=== PATIENT | female | born 1970 | race Caucasian/White ===

== ENCOUNTER 2017-10-15 20:05 | Outpatient (CLI) | payer MEDICAID, OTHER ==
[~2017-10-15 20:05] MED LIST: CELE50CA PO; DESV100T PO; LAMO100T69 PO; LEVO112T2 PO; OXYC-202 PO
== END 2017-10-16 06:35 | disposition home or self-care (01) ==
LOC: SLEEP 20:05
PROVIDERS: ATTEND Otolaryngology Otolaryngology/Facial Plastic Surgery
DX: G47.33 Obstructive sleep apnea (adult) (pediatric) (principal)
CPT/HCPCS: 95810

== ENCOUNTER → 2018-07-23 | Outpatient (CLI) | payer OTHER ==
[~2018-07-23] MED LIST changes: -OXYC-202 PO; +OXYC1TAB12 PO
--- NOTE | 2018-07-24 19:50 | Diagnostic Imaging Report ---
INDICATION: Routine screening. Comparison is made with prior mammogram from 07/10/2017 and 04/24/2016. 2-D and 3-D bilateral screening mammography was performed with Computer Aided Detection (CAD) system. FINDINGS: Both breasts remain heterogeneously dense, limiting the sensitivity of mammography. The parenchymal pattern is stable. No mass or malignant-appearing microcalcifications are seen. There are benign calcifications present. The axillae are unremarkable. IMPRESSION: No mammographic features suspicious for malignancy are identified. ACR BI-RADS Category 2: Benign findings. Result letter will be mailed to the patient. Note: At least 10% of breast cancer is not imaged by mammography. Dictated on workstation # [id number]
== END ==
LOC: RAD 13:22
PROVIDERS: ATTEND Obstetrics & Gynecology
DX: Z12.31 Encounter for screening mammogram for malignant neoplasm of breast (principal)
CPT/HCPCS: 77067

== ENCOUNTER 2018-09-09 10:58 | Outpatient (CLI) | payer OTHER ==
[~2018-09-09] VITALS: Ht 162.6 cm; Wt 65.3 kg
[2018-09-09] MEDS ORDERED: LEVO137T2 PO (11:15)
[2018-09-09] MEDS ORDERED: LAMO150T2 PO (11:15)
[2018-09-09] MEDS ORDERED: DESV50TA PO (11:15)
[2018-09-09] MEDS ORDERED: ARMO150T2 PO (13:07)
== END 2018-09-09 13:08 | disposition home or self-care (01) ==
LOC: PREOP 10:58
PROVIDERS: ATTEND Obstetrics & Gynecology
DX: Z01.818 Encounter for other preprocedural examination (principal)

== ENCOUNTER 2018-09-15 11:26 | Day surgery (SDC) | payer OTHER ==
[2018-09-15] VITALS (11 sets, daily range): BP systolic 93–125; BP diastolic 50–75
[~2018-09-15] VITALS: Ht 162.6 cm; Wt 63.5 kg
--- NOTE | 2018-09-15 09:42 | Progress Note-Pre Operative ---
Pre-Operative Progress Note H&P Reviewed The H&P was reviewed, patient examined and no changes noted. Date Seen by Provider: Sep 15, 2018 Time Seen by Provider: 12:30 Date H&P Reviewed: Sep 15, 2018 Time H&P Reviewed: 12:30 Pre-Operative Diagnosis: DUB/CPP/Endometriosis GLENROY HARRISON MD Sep 15, 2018 09:42
--- NOTE | 2018-09-15 09:43 | Progress Note-Post Operative ---
Post-Operative Progess Note Surgeon (s)/Clinical Services Consultant (s) Surgeon GLENROY HARRISON MD Clinical Services Consultant: Candida Lawrence Pre-Operative Diagnosis DUB/CPP/Endometriosis Post-Operative Diagnosis same with extensive pelvic adhesions and with extensive recurrent endometriosis and with path pending Procedure & Operative Findings Date of Procedure 09/15/18 Procedure Performed/Findings TLH/BSO Anesthesia Type GETA Estimated Blood Loss Estimated blood loss (mL): 50CC Specimens/Packing Specimens Removed Uterus/Tubes/Ovaries Packing: none GLENROY HARRISON MD Sep 15, 2018 09:43
--- NOTE | 2018-09-15 09:45 | Discharge Instructions ---
Discharge Instructions Discharge Medications New, Converted or Re-Newed RX: RX on Chart Patient Instructions Patient Instructions: as directed Return to The Hospital For: as directed Activity & Diet Discharge Diet: No Restrictions Activity as Tolerated: No Orders-Post D/C & Referrals Follow Up Appt: RTC on Monday September 17, 2018 at 9:30 AM for staple removal Call to make follow up appt. for patient in 4 weeks. Activity: Rest for 24 hours, than as tolerated. Wound Care: May remove Band-Aid tomorrow. Replace as desired. Keep incisions clean and dry. Wash daily with soap and water. Please call in RX to patient pharmacy. Diet: As tolerated-Clear Liquids only if nauseated. may shower or tub bathe as desired. No driving for 24 hours, no alcoholic beverages for 24 hours, and nothing per vagina (no tampons, douching, or intercourse) for 8 weeks. Patient to return to the clinic as soon as possible for: Temperature greater than 101F, Severe Pain, Foul discharge from incision or vagina, Excessive Bleeding (more than a period). GLENROY HARRISON MD Sep 15, 2018 09:45
[~2018-09-15 11:26] MED LIST changes: +ARMO150T2 PO; +DESV50TA PO; +DOCU-143 PO; +ESTR2TAB PO; +IBUP-1780 PO; +LAMO150T2 PO; +LEVO137T2 PO; +OXYC1TAB87 PO
[2018-09-15] MEDS ORDERED: ONDANSETRON 4 MG/2 ML (SDV) Z0FRAN ONE ×4 (11:35→14:19)
[2018-09-15] MEDS ORDERED: SCOPOLAMINE 1.5 MG (TRANSDERM-SCOP) PATCH ONE (11:35)
[2018-09-15] MEDS ORDERED: D5 LR IV SOLUTION 1,000 ML IV SCH (11:36)
[2018-09-15] MEDS ORDERED: FAMOTIDINE 20MG/2ML IV (PEPCID) ONE (11:36)
[2018-09-15] MEDS ORDERED: ceFAZolin INJECTION 1,000 MG ONE (11:36)
[2018-09-15] MEDS ORDERED: WATER (STERILE) FOR INJECTION 10 ML ONE ×2 (11:36→14:20)
[2018-09-15] MEDS ORDERED: ROCURONIUM 10 MG/ML 5 ML SYRINGE IV ONE (11:40)
[2018-09-15] MEDS ORDERED: proPOfol 200 MG/20 ML (DIPRIVAN) VIAL IV ONE (11:40)
[2018-09-15] MEDS ORDERED: LIDOCAINE PF 2% 5 ML (XYLOCAINE) VIAL ONE (11:40)
[2018-09-15] MEDS ORDERED: fentaNYL INJECTION 100 MCG/2 ML AMP ONE ×2 (11:40→13:04)
[2018-09-15] MEDS ORDERED: MIDAZOLAM 2 MG/2 ML (VERSED) VIAL ONE (11:41)
[2018-09-15] MEDS ORDERED: DEXAMETHASONE 10 MG/ML (DECADRON) 1 ML VIAL ONE (11:41)
[2018-09-15] MEDS ORDERED: WATER (STERILE) FOR INJ 10 ML BTL INJ ONE (11:45)
[2018-09-15] MEDS ORDERED: MEPERIDINE (DEMEROL) INJ 100 MG/ML IM PRN (11:45)
[2018-09-15] MEDS ORDERED: ceFAZolin INJECTION 1,000 MG in WATER (STERILE) FOR INJECTION 10 ML IV ONE (11:45)
[2018-09-15] MEDS ORDERED: ESTROGENS CONJ IV 25 MG/5 ML (PREMARIN) VIAL IVP ONE (11:45)
[2018-09-15] MEDS ORDERED: oxyCODONE/APAP 5/325MG (PERCOCET 5) TABLET PO PRN (11:45)
[2018-09-15] MEDS ORDERED: BUP/EPI 0.5% 1:200,000 (SENSORCAINE) 30 ML VIAL ONE (11:45)
[2018-09-15] MEDS ORDERED: PROMETHAZINE INJ 25 MG/ML (PHENERGAN) AMP IM PRN (11:45)
[2018-09-15] MEDS ORDERED: SEVOFLURANE (ULTANE) 15 ML INHAL SOLN ONE ×7 (11:48→13:52)
[2018-09-15] MEDS: LACTATED RINGERS 1,000 ML IV PRN ×3 (11:56→14:11)
[2018-09-15] MEDS: ONDANSETRON 4 MG/2 ML (SDV) Z0FRAN IVP PRN ×2 (12:03→14:24)
[2018-09-15 12:12] LABS: BASOPHILS % (AUTO) 1 % (0-10); EOSINOPHILS # (AUTO) 0.3 10^3/uL (0.0-0.3); EOSINOPHILS % (AUTO) 5 % (0-10); HEMATOCRIT 40 % (35-52); HEMOGLOBIN 13.4 G/DL (11.5-16.0); LYMPHOCYTES # (AUTO) 1.4 X 10^3 (1.0-4.0); LYMPHOCYTES % (AUTO) 21 % (12-44); MEAN CORPUSCULAR HEMOGLOBIN 30 PG (25-34); MEAN CORPUSCULAR HGB CONC 34 G/DL (32-36); MEAN CORPUSCULAR VOLUME 90 FL (80-99); MEAN PLATELET VOLUME 10.1 FL (7.4-10.4); MONOCYTES # (AUTO) 0.4 X 10^3 (0.0-1.0); MONOCYTES % (AUTO) 7 % (0-12); NEUTROPHILS # (AUTO) 4.3 X 10^3 (1.8-7.8); NEUTROPHILS % (AUTO) 66 % (42-75); PLATELET COUNT 274 10^3/uL (130-400); RED CELL DISTRIBUTION WIDTH 12.9 % (10.0-14.5); WHITE BLOOD COUNT 6.5 10^3/uL (4.3-11.0)
[2018-09-15] MEDS ORDERED: SCOPOLAMINE 1.5 MG (TRANSDERM-SCOP) PATCH TD ONE (12:15)
[2018-09-15] MEDS ORDERED: FAMOTIDINE 20MG/2ML IV (PEPCID) IVP ONE (12:15)
--- OUTSIDE RECORDS SUMMARY | 2018-09-15 12:38 | XMS REPORT ---
Author Author ADOLFO PATEL [facility] Address [address] [place] [address] Care Team Providers Care Conservation Of Resources Commissioner Name Role Phone ADOLFO PATEL Unavailable PROBLEMS Type Condition ICD9-CM Code IVU85-XG Code Onset Dates Condition Status SNOMED Code Problem Chronic fatigue R53.82 Active 69173068 Problem Depression, major, recurrent, moderate F33.1 Active 760664814 Problem Folic acid deficiency E53.8 Active 756317548 Problem Bipolar II disorder F31.81 Active 05475004 ALLERGIES No Information ENCOUNTERS Encounter Location Date Diagnosis [place] [id number] [place] [address] 71384- 9422 Mar, [facility] [id number] [place] [address] 50098- 1605 Mar, [facility] [address] [address]- 7966 Mar, [facility] [id number] [place] [address] 30928- 0551 Dec, [facility] [id number] [place] [address] 58368- 5521 Dec, [facility] [id number] [place] [address] 33120- 2339 Dec, Bipolar II disorder F31.81 and Chronic fatigue R53.82 [facility] [address] 30543- 6786 Oct, Bipolar II disorder F31.81 [facility] [id number] [place] [address] 84211- 5811 Jun, Bipolar II disorder F31.81 [facility] [address] [address] May, [facility] [address] [address] 10[address] Apr, [facility] [address] [address] 7226 Mar, [facility] [id number] [place] [address] 84139- 4427 Jan, Bipolar II disorder F31.81 [facility] [address] [address] 15[address] Jan, Bipolar II disorder F31.81 [facility] [id number] [place] [address] 10898- 1713 Dec, Bipolar II disorder F31.81 [facility] [address] [place] [address] 01011- 6045 Oct, Bipolar II disorder F31.81 [facility] [address] [address] 8436 Oct, Bipolar II disorder F31.81 [facility] [address] [address] 1138 September, [facility] [address] [address] 7611 September, Depression, major, recurrent, moderate F33.1 [facility] [address] [address] 57[address] September, [facility] [address] [address] 9560 September, Bipolar II disorder F31.81 and Depression, major, recurrent , moderate F33.1 [facility] [address] [address] September, Depression, major, recurrent, moderate F33.1 and Bipolar II disorder F31.81 [facility] [address] [address] 6776 September, Bipolar II disorder F31.81 [facility] [address] [place] [address] 88479- 9506 Aug, Bipolar II disorder F31.81 and Folic acid deficiency E53.8 [facility] [address] [address] 10[address] Jul, [facility] [id number] [place] [address] 90658- 9937 Jul, [facility] [address] [place] [address] 248624- 5229 Jun, Bipolar II disorder F31.81 and Folic acid deficiency E53.8 [facility] [address] [address]- 1456 Jun, [facility] [id number] [place] [address] 33348- 3736 Jun, [facility] [address] [address] May, Bipolar II disorder F31.81 [facility] [address] [address]- 0956 Apr, Bipolar II disorder F31.81 [facility] [id number] [address]- 5966 Jul, Bipolar II disorder F31.81 IMMUNIZATIONS No Known Immunizations SOCIAL HISTORY Never Assessed REASON FOR VISIT needs to schedule follow up PLAN OF CARE VITAL SIGNS MEDICATIONS Unknown Medications RESULTS No Results PROCEDURES No Known procedures INSTRUCTIONS MEDICATIONS ADMINISTERED No Known Medications MEDICAL (GENERAL) HISTORY Type Description Date Medical History Postoperative hypothyroidism Medical History Endometriosis Surgical History thyroid surgery for tumor removal 2003 Surgical History laparoscopy for endometriosis-multiple, last 2016 Surgical History C- section Surgical History T&A Surgical History Appendectomy Surgical History gallbladder removed 09/2016 Hospitalization History surgeries, for radiation for thyroid cancer, endometriosis , kidney infections
--- OUTSIDE RECORDS SUMMARY | 2018-09-15 12:38 | XMS REPORT ---
Author Author ADOLFO PATEL [facility] Address [address] [place] [address] Care Team Providers Care Caramel Cutter Machine Name Role Phone ADOLFO PATEL Unavailable PROBLEMS Type Condition ICD9-CM Code HMI03-ER Code Onset Dates Condition Status SNOMED Code Problem Chronic fatigue R53.82 Active 86006144 Problem Depression, major, recurrent, moderate F33.1 Active 901372708 Problem Folic acid deficiency E53.8 Active 381515411 Problem Bipolar II disorder F31.81 Active 15628498 ALLERGIES No Information ENCOUNTERS Encounter Location Date Diagnosis [place] [id number] [place] [address] 59253- 4167 Mar, [facility] [id number] [place] [address] 08504- 0101 Mar, [facility] [address] [address]- 7106 Mar, [facility] [id number] [place] [address] 46322- 4799 Dec, [facility] [id number] [place] [address] 74185- 1359 Dec, [facility] [id number] [place] [address] 16805- 4020 Dec, Bipolar II disorder F31.81 and Chronic fatigue R53.82 [facility] [address] 82944- 6448 Oct, Bipolar II disorder F31.81 [facility] [id number] [place] [address] 29469- 8356 Jun, Bipolar II disorder F31.81 [facility] [address] [address]- 3990 May, [facility] [address] [address]- 4427 Apr, [facility] [address] [address]- 3264 Mar, [facility] [id number] [place] [address] 17174- 6601 Jan, Bipolar II disorder F31.81 [facility] [address] [address]- 5702 Jan, Bipolar II disorder F31.81 [facility] [id number] [place] [address] 98351- 6978 Dec, Bipolar II disorder F31.81 [facility] [address] [place] [address] 05340- 1372 Oct, Bipolar II disorder F31.81 [facility] [address] [address]- 8850 Oct, Bipolar II disorder F31.81 [facility] [address] [address]- 4213 September, [facility] [address] [address]- 9562 September, Depression, major, recurrent, moderate F33.1 [facility] [address] [address]- 9547 September, [facility] [address] [address]- 8845 September, Bipolar II disorder F31.81 and Depression, major, recurrent , moderate F33.1 [facility] [address] [place] [address]- 0244 September, Depression, major, recurrent, moderate F33.1 and Bipolar II disorder F31.81 [facility] [address] [address] 4406 September, Bipolar II disorder F31.81 [facility] [id number] [place] [address] 713151- 0386 Aug, Bipolar II disorder F31.81 and Folic acid deficiency E53.8 [facility] [address] [address]- 1306 Jul, [facility] [id number] [place] [address] 44609- 5121 Jul, [facility] [address] [place] [address] 49138- 8505 Jun, Bipolar II disorder F31.81 and Folic acid deficiency E53.8 [facility] [address] [address]- 7280 Jun, [facility] [id number] [place] [address] 91595- 2815 Jun, [facility] [address] [address]- 2007 May, Bipolar II disorder F31.81 [place] [address] [address] Apr, Bipolar II disorder F31.81 [place] [address] [address]- 5343 Jul, Bipolar II disorder F31.81 IMMUNIZATIONS No Known Immunizations SOCIAL HISTORY Never Assessed REASON FOR VISIT nuvigil refill PLAN OF CARE VITAL SIGNS MEDICATIONS Medication Instructions Dosage Frequency Start Date End Date Duration Status Nuvigil 150 MG Orally Once a day 1 tablet 24h Mar, 30 days Active RESULTS No Results PROCEDURES No Known procedures [...]
--- OUTSIDE RECORDS SUMMARY | 2018-09-15 12:38 | XMS REPORT | Clinical Summary ---
Author Author [facility] Address Unknown Phone Unavailable Care Team Providers Care Pipe Finisher Name Role Phone PCP Unavailable Allergies Not on File Current Medications Prescription Sig. Disp. Refills Start End Date Status Date VESICARE 5 mg tablet Take by mouth. 30 06/21/19 Active 12 Active Problems Problem Noted Date Malaise and fatigue 02/02/2013 Overview: IMO Update Urinary incontinence 01/30/2013 Overview: ICD-10 conversion Allergic rhinitis 07/14/2010 Overview: ICD-10 conversion Malignant neoplasm of thyroid gland (HCC) 05/23/2010 Anxiety state 05/23/2010 Overview: ICD-10 conversion Major depressive disorder, single episode 05/23/2010 Overview: ICD-10 conversion Postoperative hypothyroidism 05/23/2010 Immunizations Name Dates Previously Given Next Due DTP Family History Medical History Relation Name Comments Arthritis Brother Arthritis; Diabetes Father Diabetes Mellitus; Hypertension Father Hypertension; Stroke Father Stroke Syndrome; Breast cancer Maternal Aunt Breast Cancer; Breast cancer Maternal Breast Cancer; Grandmother Pancreatic cancer Maternal Malignant Pancreatic Neoplasm; Uncle Thyroid cancer Maternal Thyroid Cancer; Uncle Arthritis Mother Arthritis; Hypertension Mother Hypertension; Thyroid nodules Mother Thyroid Nodule; Breast cancer Other Family History; Breast Cancer; Breast cancer Paternal Aunt Breast Cancer; Endometriosis Sister Endometriosis; Skin cancer Sister Skin Cancer; Thyroid nodules Sister Thyroid Nodule; Relation Name Status Comments Brother Father Maternal Aunt Maternal Grandmother Maternal Uncle Mother Other Paternal Aunt Sister Social History Tobacco Use Types Packs/Day Years Used Date Never Assessed Sex Assigned at Date Recorded Not on file Last Filed Vital Signs Vital Sign Reading Time Taken Blood Pressure 116/70 02/02/2013 3:20 PM CDT Pulse 72 02/02/2013 3:20 PM CDT Temperature - - Respiratory Rate - - Oxygen Saturation - - Inhaled Oxygen - - Concentration Weight 60.8 kg (134 lb) 02/02/2013 3:20 PM CDT Height 159 cm (5' 2.6") 02/02/2013 3:20 PM CDT Body Mass Index 24.04 02/02/2013 3:20 PM CDT Plan of Treatment Health Maintenance Due Date Last Done Comments Td # 1972 Depression Monitoring 1972 PHQ-9 # Pneumococcal Immunization 11/04/1991 19-64 Highest Risk# (1 of 3 - PCV13) Cervical Cancer Screening 07/14/2013 07/14/2010 via Pap Smear Influenza Vaccine (Season 03/20/2019 Ended) Results Not on filefrom Last 3 Months
--- OUTSIDE RECORDS SUMMARY | 2018-09-15 12:39 | XMS REPORT ---
Author Author ADOLFO PATEL [facility] Address [address] [place] [address] Care Team Providers Care Black Leather Trimmer Name Role Phone ADOLFO PATEL Unavailable PROBLEMS Type Condition ICD9-CM Code CQU80-EL Code Onset Dates Condition Status SNOMED Code Problem Chronic fatigue R53.82 Active 78446307 Problem Depression, major, recurrent, moderate F33.1 Active 706703849 Problem Folic acid deficiency E53.8 Active 761147174 Problem Bipolar II disorder F31.81 Active 17674666 ALLERGIES No Information ENCOUNTERS Encounter Location Date Diagnosis [place] [id number] [place] [address] 35263- 8267 Mar, [facility] [id number] [place] [address] 73794- 4033 Mar, [facility] [address] 46190- 1315 Mar, [facility] [id number] [place] [address] 62076- 1287 Dec, [facility] [id number] [place] [address] 18735- 2889 Dec, [facility] [id number] [place] [address] 94422- 1256 Dec, Bipolar II disorder F31.81 and Chronic fatigue R53.82 [facility] [address] [address]010- 8821 Oct, Bipolar II disorder F31.81 [facility] [id number] [place] [address] 46399- 1776 Jun, Bipolar II disorder F31.81 [facility] [address], [place] [address]- 1913 May, [facility] [address] [address]- 5976 Apr, [facility] [address], [place] [address]- 6672 Mar, [facility] [id number] [place] [address] 61186- 0205 Jan, Bipolar II disorder F31.81 [facility] [address] [address]- 9997 Jan, Bipolar II disorder F31.81 [facility] [id number] [place] [address] 97678- 4251 Dec, Bipolar II disorder F31.81 [facility] [address] [place] [address] 79510- 4986 Oct, Bipolar II disorder F31.81 [facility] [address] [address]- 4333 Oct, Bipolar II disorder F31.81 [facility] [address] [place] [address]- 6555 September, [facility] [address], [place] [address]- 6189 September, Depression, major, recurrent, moderate F33.1 [facility] [address], [place] [address]- 1256 September, [facility] [address] [address]- 0454 September, Bipolar II disorder F31.81 and Depression, major, recurrent , moderate F33.1 [facility] [address] [address]- 9454 September, Depression, major, recurrent, moderate F33.1 and Bipolar II disorder F31.81 [facility] [address] [address]- 3234 September, Bipolar II disorder F31.81 [facility] [address] [place] [address] 819021- 3226 Aug, Bipolar II disorder F31.81 and Folic acid deficiency E53.8 [facility] [address], [place] [address]- 5716 Jul, [facility] [id number] [place] [address] 91168- 6966 Jul, [facility] [address] [place] [address] 66518- 0050 Jun, Bipolar II disorder F31.81 and Folic acid deficiency E53.8 [facility] [address] [place] [address] 41355- 2472 Jun, [facility] [id number] [place] [address] 91745- 3414 Jun, [place] [address] [place] [address] 51012- 8907 May, Bipolar II disorder F31.81 [place] [address] 4088 Apr, Bipolar II disorder F31.81 [place] [address] [place] [address]- 8329 Jul, Bipolar II disorder F31.81 IMMUNIZATIONS No Known Immunizations SOCIAL HISTORY Never Assessed REASON FOR VISIT refill nuvigil PLAN OF CARE VITAL SIGNS MEDICATIONS Medication Instructions Dosage Frequency Start Date End Date Duration Status Nuvigil 50 MG Orally Once a day in afternoon 2 tablets Mar, 30 days Active RESULTS No Results [...]
--- OUTSIDE RECORDS SUMMARY | 2018-09-15 12:39 | XMS REPORT ---
Author Author RICARDO Germain [facility] Address [address] [place] [address] Care Team Providers Care Recreation Director Name Role Phone RICARDO Germain Unavailable PROBLEMS Type Condition ICD9-CM Code STL47-TW Code Onset Dates Condition Status SNOMED Code Problem Depression, major, recurrent, moderate F33.1 Active 661134893 Problem Folic acid deficiency E53.8 Active 469153375 Problem Bipolar II disorder F31.81 Active 00201422 ALLERGIES No Information SOCIAL HISTORY Never Assessed PLAN OF CARE VITAL SIGNS MEDICATIONS Unknown Medications RESULTS No Results PROCEDURES No Known procedures IMMUNIZATIONS No Known Immunizations MEDICAL (GENERAL) HISTORY Type Description Date Medical History Postoperative hypothyroidism Medical History Endometriosis Surgical History thyroid surgery for tumor removal Surgical History laparoscopy for endometriosis Surgical History C- section Surgical History T&A Surgical History Appendectomy
--- OUTSIDE RECORDS SUMMARY | 2018-09-15 12:39 | XMS REPORT ---
Author Author ADOLFO PATEL [facility] Address [address] [place] [address] Care Team Providers Care Billing Clerk Name Role Phone ADOLFO PATEL Unavailable PROBLEMS Type Condition ICD9-CM Code SWL53-LG Code Onset Dates Condition Status SNOMED Code Problem Chronic fatigue R53.82 Active 55874381 Problem Depression, major, recurrent, moderate F33.1 Active 669890520 Problem Folic acid deficiency E53.8 Active 751820707 Problem Bipolar II disorder F31.81 Active 16758975 ALLERGIES No Information ENCOUNTERS Encounter Location Date Diagnosis [place] [id number] [place] [address] 33308- 2602 Dec, [facility] [id number] [place] [address] 77372- 2389 Dec, [place] [id number] [place] [address] 48052- 3568 Dec, Bipolar II disorder F31.81 and Chronic fatigue R53.82 [facility] [id number] [place] [address] 74566- 8517 Oct, Bipolar II disorder F31.81 [facility] [id number] [place] [address] 73648- 4983 Jun, Bipolar II disorder F31.81 [facility] [id number] [place] [address] 66856- 6875 May, [facility] [id number] [place] [address] 50843- 6434 Apr, [facility] [id number] [place] [address] 99858- 1079 Mar, [facility] [address], [place] [address] 1278 Jan, Bipolar II disorder F31.81 [facility] [id number] [place] [address] 17894- 3037 Jan, Bipolar II disorder F31.81 [facility] [id number] [place] [address] 59131- 4889 Dec, Bipolar II disorder F31.81 [facility] [id number] [place] [address] 80823- 5918 Oct, Bipolar II disorder F31.81 [facility] [id number] [place] [address] 60456- 8447 Oct, Bipolar II disorder F31.81 [facility] [id number] [place] [address] 02370- 6028 September, [facility] [id number] [place] [address] 52713- 6251 September, Depression, major, recurrent, moderate F33.1 [facility] [id number] [place] [address] 80489- 6913 September, [facility] [id number] [place] [address] 28936- 3063 September, Bipolar II disorder F31.81 and Depression, major, recurrent , moderate F33.1 [place] [id number] [place] [address] 21727- 6855 September, Depression, major, recurrent, moderate F33.1 and Bipolar II disorder F31.81 [facility] [address] [place] [address] 73824- 9264 September, Bipolar II disorder F31.81 [facility] [id number] [place] [address] 33142- 3155 Aug, Bipolar II disorder F31.81 and Folic acid deficiency E53.8 [facility] [id number] [place] [address] 15445- 4186 Jul, [place] [address], [place] [address]- 0106 Jul, [place] [address] [place] [address] 02047- 8586 Jun, Bipolar II disorder F31.81 and Folic acid deficiency E53.8 [place] [address] [place] [address] 83333- 2836 Jun, [place] [address] [place] [address] 09823- 7866 Jun, [place] [id number] [place] [address] 06039- 9516 May, Bipolar II disorder F31.81 [place] [address], [place] [address] Apr, Bipolar II disorder F31.81 [place] [address], [place] [address] 2546 Jul, Bipolar II disorder F31.81 IMMUNIZATIONS No Known Immunizations SOCIAL HISTORY Never Assessed REASON FOR VISIT PLAN OF CARE VITAL SIGNS MEDICATIONS Medication Instructions Dosage Frequency Start Date End Date Duration Status Abilify 5 MG Orally Once a day 1 tablet 24h Dec, 30 day(s) Active RESULTS No Results PROCEDURES No Known [...]
--- OUTSIDE RECORDS SUMMARY | 2018-09-15 12:39 | XMS REPORT ---
Author Author DEANGELO VANEGAS [facility] Address [address] [place] [address] Care Team Providers Care Industrial Relations Analyst Name Role Phone DEANGELO VANEGAS Unavailable PROBLEMS Type Condition ICD9-CM Code BSF51-DL Code Onset Dates Condition Status SNOMED Code Problem Depression, major, recurrent, moderate F33.1 Active 650461486 Problem Folic acid deficiency E53.8 Active 930435718 Problem Bipolar II disorder F31.81 Active 75111475 ALLERGIES No Information SOCIAL HISTORY Never Assessed PLAN OF CARE VITAL SIGNS MEDICATIONS Medication Instructions Dosage Frequency Start Date End Date Duration Status Rexulti 1 MG Orally Once a day 1 tablet 24h 90 days Active RESULTS No Results PROCEDURES No [...]
--- OUTSIDE RECORDS SUMMARY | 2018-09-15 12:39 | XMS REPORT ---
Author Author ADOLFO PATEL [facility] Address [address] [place] [address] Care Team Providers Care Advanced Developer Name Role Phone ADOLFO PATEL Unavailable PROBLEMS Type Condition ICD9-CM Code TOB20-DI Code Onset Dates Condition Status SNOMED Code Problem Chronic fatigue R53.82 Active 03181829 Problem Depression, major, recurrent, moderate F33.1 Active 088817238 Problem Folic acid deficiency E53.8 Active 776275882 Problem Bipolar II disorder F31.81 Active 03344058 ALLERGIES No Information ENCOUNTERS Encounter Location Date Diagnosis [place] [id number] [place] [address] 77854- 1086 Dec, [facility] [id number] [place] [address] 67285- 4015 Dec, [place] [id number] [place] [address] 61272- 6287 Dec, Bipolar II disorder F31.81 and Chronic fatigue R53.82 [facility] [id number] [place] [address] 47495- 2767 Oct, Bipolar II disorder F31.81 [facility] [id number] [place] [address] 66043- 8702 Jun, Bipolar II disorder F31.81 [facility] [id number] [place] [address] 41395- 3193 May, [facility] [id number] [place] [address] 55645- 2909 Apr, [facility] [id number] [place] [address] 63129- 4176 Mar, [facility] [address], [place] [address]- 5011 Jan, Bipolar II disorder F31.81 [facility] [id number] [place] [address] 87767- 5384 Jan, Bipolar II disorder F31.81 [facility] [id number] [place] [address] 43470- 1779 Dec, Bipolar II disorder F31.81 [facility] [id number] [place] [address] 84531- 9503 Oct, Bipolar II disorder F31.81 [facility] [id number] [place] [address] 14627- 2077 Oct, Bipolar II disorder F31.81 [facility] [id number] [place] [address] 71096- 0840 September, [facility] [id number] [place] [address] 66037- 5612 September, Depression, major, recurrent, moderate F33.1 [facility] [id number] [place] [address] 46958- 6174 September, [facility] [id number] [place] [address] 14474- 6197 September, Bipolar II disorder F31.81 and Depression, major, recurrent , moderate F33.1 [place] [id number] [place] [address] 80693- 0949 September, Depression, major, recurrent, moderate F33.1 and Bipolar II disorder F31.81 [facility] [address] [place] [address] 32550- 7598 September, Bipolar II disorder F31.81 [facility] [id number] [place] [address] 24430- 2957 Aug, Bipolar II disorder F31.81 and Folic acid deficiency E53.8 [facility] [id number] [place] [address] 62745 2546 Jul, [place] [address], [place] [address]- 0496 Jul, [place] [address] [place] [address] 95316- 5326 Jun, Bipolar II disorder F31.81 and Folic acid deficiency E53.8 [place] [address] [place] [address] 43872- 7756 Jun, [place] [address] [place] [address] 97801- 5566 Jun, [place] [id number] [place] [address] 77212- 1836 May, Bipolar II disorder F31.81 [place] [address], [place] [address]- 0146 Apr, Bipolar II disorder F31.81 [place] [address], [place] [address] 2546 Jul, Bipolar II disorder F31.81 IMMUNIZATIONS No Known Immunizations SOCIAL HISTORY Never Assessed REASON FOR VISIT med refill PLAN OF CARE VITAL SIGNS MEDICATIONS Medication Instructions Dosage Frequency Start Date End Date Duration Status Armodafinil 250 mg Orally Once a day 1 tablet in the morning 24h Jan 30 days Active RESULTS No Results PROCEDURES [...]
--- OUTSIDE RECORDS SUMMARY | 2018-09-15 12:39 | XMS REPORT ---
Author Author ADOLFO PATEL [facility] Address [address] [place] [address] Care Team Providers Care Senior Principal Software Engineer Name Role Phone ADOLFO PATEL Unavailable PROBLEMS Type Condition ICD9-CM Code MVZ42-FA Code Onset Dates Condition Status SNOMED Code Problem Chronic fatigue R53.82 Active 11160917 Problem Depression, major, recurrent, moderate F33.1 Active 092851803 Problem Folic acid deficiency E53.8 Active 389463354 Problem Bipolar II disorder F31.81 Active 55182261 ALLERGIES No Known Allergies ENCOUNTERS Encounter Location Date Diagnosis [place] [id number] [place] [address] 08018- 0434 Dec, [facility] [id number] [place] [address] 43648- 2152 Dec, [place] [id number] [place] [address] 52759- 2173 Dec, Bipolar II disorder F31.81 and Chronic fatigue R53.82 [facility] [id number] [place] [address] 17239- 3822 Oct, Bipolar II disorder F31.81 [facility] [id number] [place] [address] 56788- 2968 Jun, Bipolar II disorder F31.81 [facility] [id number] [place] [address] 65069- 7071 May, [facility] [id number] [place] [address] 35646- 1526 Apr, [facility] [id number] [place] [address] 73567- 6589 Mar, [facility] [id number] [place] [address] 96204- 0781 Jan, Bipolar II disorder F31.81 [facility] [id number] [place] [address] 47407- 6176 Jan, Bipolar II disorder F31.81 [facility] [id number] [place] [address] 15242- 0789 Dec, Bipolar II disorder F31.81 [facility] [id number] [place] [address] 29054- 3376 Oct, Bipolar II disorder F31.81 [facility] [id number] [place] [address] 57820- 8134 Oct, Bipolar II disorder F31.81 [facility] [id number] [place] [address] 48221- 1948 September, [facility] [id number] [place] [address] 25078- 0856 September, Depression, major, recurrent, moderate F33.1 [place] [id number] [place] [address] 02198- 4599 September, [facility] [id number] [place] [address] 81668- 3710 September, Bipolar II disorder F31.81 and Depression, major, recurrent , moderate F33.1 [place] [id number] [place] [address] 68331- 1813 September, Depression, major, recurrent, moderate F33.1 and Bipolar II disorder F31.81 [facility] [id number] [place] [address] 36061- 9967 September, Bipolar II disorder F31.81 [facility] [id number] [place] [address] 99152- 1720 Aug, Bipolar II disorder F31.81 and Folic acid deficiency E53.8 [facility] [id number] [place] [address] 14543- 2875 Jul, [place] [address] [address]- 1146 Jul, [place] [id number] [place] [address] 55794- 7801 Jun, Bipolar II disorder F31.81 and Folic acid deficiency E53.8 [place] [id number] [place] [address] 14913- 7315 Jun, [place] [id number] [place] [address] 19858- 3909 Jun, [place] [id number] [place] [address] 24331- 8695 May, Bipolar II disorder F31.81 [place] [address], [place] [address]- 9398 Apr, Bipolar II disorder F31.81 [place] [address], [place] [address]- 3888 Jul, Bipolar II disorder F31.81 IMMUNIZATIONS No Known Immunizations SOCIAL HISTORY Never Assessed REASON FOR VISIT f/u Oswaldo PLAN OF CARE Activity Details Follow Up 4 Weeks Reason: VITAL SIGNS Height 60.0 in 2017-12-24 Weight 140.8 lbs 2017-12-24 Heart Rate 88 bpm 2017-12-24 Respiratory Rate 20 2017-12-24 BMI 27.50 kg/m2 2017-12-24 Blood pressure systolic 132 mmHg 2017-12-24 Blood pressure diastolic 76 mmHg 2017-12-24 MEDICATIONS Medication Instructions Dosage Frequency Start Date End Date Duration Status Colestipol HCl 1 GM Orally Once a day 2 tablets 24h Active Prilosec OTC 20 MG Orally Once a day 1 tablet 24h Active Hydrocodone-Acetaminophen 5-325 MG Orally Once a day 1 tablet as needed 24h Active Nuvigil 150 MG Orally in morning 1 tablet 30 days Active Synthroid 112 MCG Orally Once a day 1 tablet on an empty stomach in the morning 24h Active Rexulti 1 MG Orally Once a day 0.5 tablet daily for one week then full tablet daily 24h Dec, 30 day(s) Active Nuvigil 50 MG Orally afternoon 2 tablet Dec, Mar, 30 days Active Pristiq 100 MG Orally Once a day 1 tablet 24h 30 days Active RESULTS No Results PROCEDURES No Known procedures INSTRUCTIONS MEDICATIONS ADMINISTERED No Known Medications MEDICAL (GENERAL) HISTORY Type Description Date Medical History Postoperative hypothyroidism Medical History Endometriosis Surgical History thyroid surgery for tumor removal 2003 Surgical History laparoscopy for endometriosis-multiple, last 2015 Surgical History C- section Surgical History T&A Surgical History Appendectomy Surgical History gallbladder removed 09/2016 Hospitalization History surgeries, for radiation for thyroid cancer, endometriosis , kidney infections
--- OUTSIDE RECORDS SUMMARY | 2018-09-15 12:39 | XMS REPORT ---
Author Author RICARDO Germain Organization [facility] Address [address] [place] [address] Care Team Providers Care Air Launch Weapons Technician Name Role Phone RICARDO Germain Unavailable PROBLEMS Type Condition ICD9-CM Code DZB83-QW Code Onset Dates Condition Status SNOMED Code Problem Depression, major, recurrent, moderate F33.1 Active 811630581 Problem Folic acid deficiency E53.8 Active 767123368 Problem Bipolar II disorder F31.81 Active 69219901 ALLERGIES No Known Allergies SOCIAL HISTORY Never Assessed PLAN OF CARE Activity Details Follow Up 2 Months Reason: VITAL SIGNS Height 60.0 in 2016-10-22 Weight 168.6 lbs 2016-10-22 Heart Rate 82 bpm 2016-10-22 Respiratory Rate 20 2016-10-22 BMI 32.92 kg/m2 2016-10-22 Blood pressure systolic 122 mmHg 2016-10-22 Blood pressure diastolic 80 mmHg 2016-10-22 MEDICATIONS Medication Instructions Dosage Frequency Start Date End Date Duration Status Pristiq 100 MG Orally Once a day 1 tablet 24h 30 days Active Synthroid 112 MCG Orally Once a day 1 tablet on an empty stomach in the morning 24h Active Lamictal 150 MG Orally Once a day 1/2 tablet 24h 30 days Active Prilosec OTC 20 MG Orally Once a day 1 tablet 24h Active Hydrocodone-Acetaminophen 5-325 MG Orally Once a day 1 tablet as needed 24h Active Armodafinil 250 MG Orally Once a day 1 tablet in the morning 24h 30 days Active Latuda 40 MG Orally Once a day 1 tablet with food 24h Oct, 30 day(s) Active RESULTS No Results PROCEDURES [...]
--- OUTSIDE RECORDS SUMMARY | 2018-09-15 12:39 | XMS REPORT ---
Author Author MACHELLE TERRY [facility] Address [address] [place] [address] Care Team Providers Care Math Teacher Name Role Phone MACHELLE TERRY Unavailable PROBLEMS Type Condition ICD9-CM Code ZXR03-SV Code Onset Dates Condition Status SNOMED Code Problem Depression, major, recurrent, moderate F33.1 Active 160827767 Problem Folic acid deficiency E53.8 Active 829105943 Problem Bipolar II disorder F31.81 Active 66974489 ALLERGIES No Information SOCIAL HISTORY Never Assessed PLAN OF CARE VITAL SIGNS MEDICATIONS Medication Instructions Dosage Frequency Start Date End Date Duration Status Rexulti 2 MG Orally Once a day 1 tablet [...]
--- OUTSIDE RECORDS SUMMARY | 2018-09-15 12:39 | XMS REPORT ---
Author Author DEANGELO VANEGAS [facility] Address [address] [place] [address] Care Team Providers Care Creative Director Name Role Phone DEANGELO VANEGAS Unavailable PROBLEMS Type Condition ICD9-CM Code VEY92-NM Code Onset Dates Condition Status SNOMED Code Problem Depression, major, recurrent, moderate F33.1 Active 312324389 Problem Folic acid deficiency E53.8 Active 231393705 Problem Bipolar II disorder F31.81 Active 27136065 ALLERGIES No Information SOCIAL HISTORY Never Assessed PLAN OF CARE VITAL SIGNS MEDICATIONS Medication Instructions Dosage Frequency Start Date End Date Duration Status Rexulti 2 MG Orally Once a day 1 tablet 24h September, 90 days Active RESULTS No Results PROCEDURES [...]
--- OUTSIDE RECORDS SUMMARY | 2018-09-15 12:39 | XMS REPORT ---
Author Author ADOLFO PATEL [facility] Address [address] [place] [address] Care Team Providers Care Fructose Loader Name Role Phone ADOLFO PATEL Unavailable PROBLEMS Type Condition ICD9-CM Code AVX09-QL Code Onset Dates Condition Status SNOMED Code Problem Chronic fatigue R53.82 Active 21098597 Problem Depression, major, recurrent, moderate F33.1 Active 594733875 Problem Folic acid deficiency E53.8 Active 138121747 Problem Bipolar II disorder F31.81 Active 13130192 ALLERGIES No Information ENCOUNTERS Encounter Location Date Diagnosis [place] [id number] [place] [address] 17416- 6553 Dec, [facility] [id number] [place] [address] 86027- 5045 Dec, [place] [id number] [place] [address] 08816- 7210 Dec, Bipolar II disorder F31.81 and Chronic fatigue R53.82 [facility] [id number] [place] [address] 20059- 4422 Oct, Bipolar II disorder F31.81 [facility] [id number] [place] [address] 32231- 6230 Jun, Bipolar II disorder F31.81 [facility] [id number] [place] [address] 86458- 6771 May, [facility] [id number] [place] [address] 67558- 0521 Apr, [facility] [id number] [place] [address] 52941- 7208 Mar, [facility] [address], [place] [address]- 2517 Jan, Bipolar II disorder F31.81 [facility] [id number] [place] [address] 51248- 1594 Jan, Bipolar II disorder F31.81 [facility] [id number] [place] [address] 35695- 5636 Dec, Bipolar II disorder F31.81 [facility] [id number] [place] [address] 92562- 8917 Oct, Bipolar II disorder F31.81 [facility] [id number] [place] [address] 49278- 2743 Oct, Bipolar II disorder F31.81 [facility] [id number] [place] [address] 94069- 2698 September, [facility] [id number] [place] [address] 16682- 9261 September, Depression, major, recurrent, moderate F33.1 [facility] [id number] [place] [address] 42255- 3607 September, [facility] [id number] [place] [address] 53151- 8676 September, Bipolar II disorder F31.81 and Depression, major, recurrent , moderate F33.1 [place] [id number] [place] [address] 63505- 7608 September, Depression, major, recurrent, moderate F33.1 and Bipolar II disorder F31.81 [facility] [id number] [place] [address] 77551- 7361 September, Bipolar II disorder F31.81 [facility] [id number] [place] [address] 57182- 9304 Aug, Bipolar II disorder F31.81 and Folic acid deficiency E53.8 [facility] [id number] [place] [address] 05631- 5606 Jul, [facility] [address], [place] [address]- 0238 Jul, [place] [address] [place] [address] 82637- 2386 Jun, Bipolar II disorder F31.81 and Folic acid deficiency E53.8 [place] [address] [place] [address] 32199- 3636 Jun, [place] [address] [place] [address] 86921- 3586 Jun, [place] [id number] [place] [address] 77087- 3692 May, Bipolar II disorder F31.81 [place] [address], [place] [address]- 3736 Apr, Bipolar II disorder F31.81 [place] [address], [place] [address]- 6866 Jul, Bipolar II disorder F31.81 IMMUNIZATIONS No Known Immunizations SOCIAL HISTORY Never Assessed REASON FOR VISIT Medication question PLAN OF CARE VITAL SIGNS MEDICATIONS Unknown [...]
--- OUTSIDE RECORDS SUMMARY | 2018-09-15 12:39 | XMS REPORT ---
Author Author AMANDA ADOLFO [facility] Address [address] [place] [address] Care Team Providers Care Sanitarian Inspector Name Role Phone ADOLFO PATEL Unavailable PROBLEMS Type Condition ICD9-CM Code NFH72-DH Code Onset Dates Condition Status SNOMED Code Problem Depression, major, recurrent, moderate F33.1 Active 977806773 Problem Folic acid deficiency E53.8 Active 770622000 Problem Bipolar II disorder F31.81 Active 69801037 ALLERGIES No Known Allergies ENCOUNTERS Encounter Location Date Diagnosis [place] [id number] [place] [address] 66860- 1460 Dec, [facility] [id number] [place] [address] 97163- 4634 Jun, Bipolar II disorder F31.81 [facility] [id number] [place] [address] 06577- 8449 May, [facility] [id number] [place] [address] 19198- 4541 Apr, [facility] [id number] [place] [address] 76580- 6083 Mar, [facility] [id number] [place] [address] 21606- 3721 Jan, Bipolar II disorder F31.81 [facility] [id number] [place] [address] 99028- 3144 Jan, Bipolar II disorder F31.81 [facility] [id number] [place] [address] 43918- 6781 Dec, Bipolar II disorder F31.81 [facility] [id number] [place] [address] [id number]- 9698 Oct, Bipolar II disorder F31.81 [facility] [address] [place] [address] 854856- 5056 Oct, Bipolar II disorder F31.81 [facility] [address] [place] [address] 26448- 9066 September, [facility] [id number] [place] [address] 48488- 5317 September, Depression, major, recurrent, moderate F33.1 [facility] [address] [place] [address] 79847- 6911 September, [facility] [id number] [place] [address] 98629- 0900 September, Bipolar II disorder F31.81 and Depression, major, recurrent , moderate F33.1 [facility] [address] [place] [address] 21990- 1344 September, Depression, major, recurrent, moderate F33.1 and Bipolar II disorder F31.81 [facility] [address] [place] [address] 21516- 7870 September, Bipolar II disorder F31.81 [facility] [address] [place] [address] 36011- 6134 Aug, Bipolar II disorder F31.81 and Folic acid deficiency E53.8 [facility] [address] [address] 6567 Jul, [facility] [address] [place] [address]- 7166 Jul, [facility] [id number] [place] [address] 13371- 8156 Jun, Bipolar II disorder F31.81 and Folic acid deficiency E53.8 [facility] [address] [place] [address] 81820- 4846 Jun, [facility] [address] [facility] [id number] [id number]- 4335 Jun, [facility] [address] [facility] [id number], [place] [address]- 9903 May, Bipolar II disorder F31.81 [facility] [address] [facility] [id number], [place] [address]- 0996 Apr, Bipolar II disorder F31.81 [facility] [address] [facility] [id number], [place] [address]- 0058 Jul, Bipolar II disorder F31.81 IMMUNIZATIONS No Known Immunizations SOCIAL HISTORY Never Assessed REASON FOR VISIT BH intake--Linus Archibald MA PLAN OF CARE Activity Details Follow Up 2 Months Reason: VITAL SIGNS Height 60.0 in 2017-02-07 Weight 163.6 lbs 2017-02-07 Heart Rate 76 bpm 2017-02-07 Respiratory Rate 20 2017-02-07 BMI 31.95 kg/m2 2017-02-07 Blood pressure systolic 132 mmHg 2017-02-07 Blood pressure diastolic 96 mmHg 2017-02-07 MEDICATIONS Medication Instructions Dosage Frequency Start Date End Date Duration Status Pristiq 100 MG Orally Once a day 1 tablet 24h 30 days Active Lamictal 100 MG Orally Once a day 1 tablet 24h 30 days Active Hydrocodone-Acetaminophen 5-325 MG Orally Once a day 1 tablet as needed 24h Active Prilosec OTC 20 MG Orally Once a day 1 tablet 24h Active Synthroid 112 MCG Orally Once a day 1 tablet on an empty stomach in the morning 24h Active Armodafinil 250 MG Orally Once a day 1 tablet in the morning 24h Mar 30 days Active RESULTS No Results PROCEDURES [...]
--- OUTSIDE RECORDS SUMMARY | 2018-09-15 12:39 | XMS REPORT ---
Author Author RICARDO Germain [facility] Address [address] [place] [address] Care Team Providers Care Microstrategy Reports Developer Name Role Phone RICARDO Germain Unavailable PROBLEMS Type Condition ICD9-CM Code MHE84-BE Code Onset Dates Condition Status SNOMED Code Problem Depression, major, recurrent, moderate F33.1 Active 862579341 Problem Folic acid deficiency E53.8 Active 297709437 Problem Bipolar II disorder F31.81 Active 65975890 ALLERGIES Unknown Allergies SOCIAL HISTORY No smoking Hx information available PLAN OF CARE VITAL SIGNS MEDICATIONS Unknown Medications RESULTS No Results PROCEDURES No Known procedures IMMUNIZATIONS No Known Immunizations
--- OUTSIDE RECORDS SUMMARY | 2018-09-15 12:39 | XMS REPORT ---
Author Author RICARDO Germain Organization [facility] Address [address] [place] [address] Care Team Providers Care Credit Products Officer Name Role Phone RICARDO Germain Unavailable PROBLEMS Type Condition ICD9-CM Code GHA41-CP Code Onset Dates Condition Status SNOMED Code Problem Depression, major, recurrent, moderate F33.1 Active 161749301 Problem Folic acid deficiency E53.8 Active 937398697 Problem Bipolar II disorder F31.81 Active 33424497 ALLERGIES Substance Reaction Event Type Date Status N.K.D.A. Unknown Non Drug Allergy Apr, Unknown SOCIAL HISTORY No smoking Hx information available PLAN OF CARE Activity Details Follow Up 2 Months Reason: VITAL SIGNS Weight 162.2 lbs 2016-05-18 Heart Rate 108 bpm 2016-05-18 Respiratory Rate 20 2016-05-18 Blood pressure systolic 146 mmHg 2016-05-18 Blood pressure diastolic 93 mmHg 2016-05-18 MEDICATIONS Medication Instructions Dosage Frequency Start Date End Date Duration Status Rexulti 1 MG Orally Once a day 1 tablet 24h 30 days Active Hydrocodone-Acetaminophen 5-325 MG Orally Once a day 1 tablet as needed 24h Active Synthroid 112 MCG Orally Once a day 1 tablet on an empty stomach in the morning 24h Active Lamictal 150 MG Orally Twice a day 1 tablet 12h 30 days Active Pristiq 100 MG Orally Once a day 1 tablet 24h 30 days Active Armodafinil 250 MG Orally Once a day 1 tablet in the morning 24h 30 days Active RESULTS Name Result Date Reference Range IRON 2016-05-18 Iron, Serum 56 27-159 A1C 2016-05-18 Hemoglobin A1c 5.3 4.8-5.6 VITAMIN B12 2016-05-18 Vitamin B12 593 211-946 FOLATE (FOLIC ACID) 2016-05-18 Folate (Folic Acid), Serum >20.0 >3.0 CBC 2016-05-18 WBC 7.3 3.4-10.8 RBC 4.44 3.77-5.28 Hemoglobin 13.1 11.1-15.9 Hematocrit 39.7 34.0-46.6 MCV 89 79-97 MCH 29.5 26.6-33.0 MCHC 33.0 31.5-35.7 RDW 16.2 12.3-15.4 Platelets 320 150-379 Neutrophils 63 Lymphs 27 Monocytes 7 Eos 2 Basos 1 Neutrophils (Absolute) 4.6 1.4-7.0 Lymphs (Absolute) 2.0 0.7-3.1 Monocytes(Absolute) 0.5 0.1-0.9 Eos (Absolute) 0.2 0.0-0.4 Baso (Absolute) 0.1 0.0-0.2 Immature Granulocytes 0 Immature Grans (Abs) 0.0 0.0-0.1 CMP 2016-05-18 Glucose, Serum 89 65-99 BUN 8 6-24 Creatinine, Serum 0.73 0.57-1.00 eGFR If NonAfricn Am 101 >59 eGFR If Africn Am 117 >59 BUN/Creatinine Ratio 11 9-23 Sodium, Serum 139 134-144 Potassium, Serum 3.9 3.5-5.2 Chloride, Serum 98 96-106 Carbon Dioxide, Total 23 18-29 Calcium, Serum 9.6 8.7-10.2 Protein, Total, Serum 7.0 6.0-8.5 Albumin, Serum 4.2 3.5-5.5 Globulin, Total 2.8 1.5-4.5 A/G Ratio 1.5 1.1-2.5 Bilirubin, Total <0.2 0.0-1.2 Alkaline Phosphatase, S 45 39-117 AST (SGOT) 29 0-40 ALT (SGPT) 41 0-32 LIPID (OUTSIDE LAB) 2016-05-19 URINE DRUG SCREEN (IN HOUSE) 2016-05-18 Lot # [id number] Exp date Control + COCAINE Negative AMPH Negative MTD Negative THC Negative OPIATE Positive BENZO Negative PCP Negative BAR Negative OXY Negative MAMP Negative TCA Negative BUP Negative MDMA Negative PROCEDURES Procedure Date Ordered Related Diagnosis Body Site DRUG SCREEN NON TLC DEVICES May 18, 2016 MH Office Visit, New Pt., Level 4 May 18, 2016 COMPREHEN METABOLIC PANEL May 18, 2016 COMPLETE CBC W/AUTO DIFF WBC May 18, 2016 VENIPUNCT, ROUTINE* May 18, 2016 GLYCATED HEMOGLOBIN TEST May 18, 2016 ASSAY OF IRON May 18, 2016 BLOOD FOLIC ACID SERUM May 18, 2016 VITAMIN B-12 May 18, 2016 IMMUNIZATIONS No Known Immunizations
--- OUTSIDE RECORDS SUMMARY | 2018-09-15 12:39 | XMS REPORT ---
Author Author RICARDO Germain [facility] Address [address] [place] [address] Care Team Providers Care Sports Management Intern Name Role Phone RICARDO Germain Unavailable PROBLEMS Type Condition ICD9-CM Code XHC57-HC Code Onset Dates Condition Status SNOMED Code Problem Depression, major, recurrent, moderate F33.1 Active 600151429 Problem Folic acid deficiency E53.8 Active 527296424 Problem Bipolar II disorder F31.81 Active 45586789 ALLERGIES No Information SOCIAL HISTORY Never Assessed PLAN OF CARE VITAL SIGNS MEDICATIONS No Known Medications RESULTS No Results PROCEDURES No Known [...]
--- OUTSIDE RECORDS SUMMARY | 2018-09-15 12:40 | XMS REPORT ---
Author Author RICARDO Germain Organization [facility] Address [address] [place] [address] Care Team Providers Care Machine Operator Cane Cutter Name Role Phone RICARDO Germain Unavailable PROBLEMS Type Condition ICD9-CM Code LXF86-NT Code Onset Dates Condition Status SNOMED Code Problem Depression, major, recurrent, moderate F33.1 Active 000880009 Problem Folic acid deficiency E53.8 Active 666229864 Problem Bipolar II disorder F31.81 Active 60073580 ALLERGIES No Information SOCIAL HISTORY Never Assessed [...]
--- OUTSIDE RECORDS SUMMARY | 2018-09-15 12:40 | XMS REPORT ---
Author Author ADOLFO PATEL [facility] Address [address] [place] [address] Care Team Providers Care Cotton Candy Maker Name Role Phone ADOLFO PATEL Unavailable PROBLEMS Type Condition ICD9-CM Code ANN58-NO Code Onset Dates Condition Status SNOMED Code Problem Depression, major, recurrent, moderate F33.1 Active 791788372 Problem Folic acid deficiency E53.8 Active 322275372 Problem Bipolar II disorder F31.81 Active 60351873 ALLERGIES No Information ENCOUNTERS Encounter Location Date Diagnosis [facility] [address] 32076- 9170 Dec, [facility] [id number] [place] [address] 79862- 4138 Jun, Bipolar II disorder F31.81 [facility] [id number] [place] [address] 19111- 9609 May, [facility] [id number] [place] [address] 75212- 0071 Apr, [facility] [id number] [place] [address] 86930- 9110 Mar, [facility] [id number] [place] [address] 53631- 1906 Jan, Bipolar II disorder F31.81 [facility] [id number] [place] [address] 83946- 1654 Jan, Bipolar II disorder F31.81 [facility] [id number] [place] [address] 96500- 9263 Dec, Bipolar II disorder F31.81 [facility] [id number] [place] [address] 34167- 8912 Oct, Bipolar II disorder F31.81 [facility] [address] 1436 Oct, Bipolar II disorder F31.81 [facility] [address] [address] September, [facility] [address] [place] [address] 96866- 8139 September, Depression, major, recurrent, moderate F33.1 [facility] [address] [place] [address] 919617- 3908 September, [facility] [id number] [place] [address] 94780- 5391 September, Bipolar II disorder F31.81 and Depression, major, recurrent , moderate F33.1 [facility] [address] [place] [address] 75616- 5126 September, Depression, major, recurrent, moderate F33.1 and Bipolar II disorder F31.81 [facility] [address] [place] [address] 23621- 1270 September, Bipolar II disorder F31.81 [facility] [address] [address]- 2556 Aug, Bipolar II disorder F31.81 and Folic acid deficiency E53.8 [facility] [address] [address]- 8569 Jul, [facility] [address] [address]- 2906 Jul, [facility] [id number] [place] [address] 34284- 1806 Jun, Bipolar II disorder F31.81 and Folic acid deficiency E53.8 [facility] [address] [place] [address] 580085- 1776 Jun, [facility] [address] [facility] [id number], [place] [address]- 2546 Jun, [facility] [address] [facility] [id number], [place] [address]- 4956 May, Bipolar II disorder F31.81 [facility] [address] [facility] [id number], [place] [address]- 8036 Apr, Bipolar II disorder F31.81 [facility] [address] [facility] [id number], [place] [address]- 2546 Jul, Bipolar II disorder F31.81 IMMUNIZATIONS No Known Immunizations SOCIAL HISTORY Never Assessed REASON FOR VISIT med refill PLAN OF CARE VITAL SIGNS MEDICATIONS Medication Instructions Dosage Frequency Start Date End Date Duration Status Armodafinil 250 mg Orally Once a day TAKE ONE TABLET BY MOUTH ONCE DAILY IN THE MORNING 24h 30 Active Lamictal 100 mg TAKE ONE TABLET BY MOUTH ONCE DAILY 30 Active Pristiq 100 mg Orally Once a day 1 tablet 24h [...]
--- OUTSIDE RECORDS SUMMARY | 2018-09-15 12:40 | XMS REPORT ---
Author Author RICARDO Germain [facility] Address [address] [place] [address] Care Team Providers Care Office Support Associate Name Role Phone RICARDO Germain Unavailable PROBLEMS Type Condition ICD9-CM Code DQX47-WT Code Onset Dates Condition Status SNOMED Code Problem Depression, major, recurrent, moderate F33.1 Active 706849956 Problem Folic acid deficiency E53.8 Active 299038103 Problem Bipolar II disorder F31.81 Active 24181989 ALLERGIES No Information SOCIAL HISTORY Never Assessed [...]
--- OUTSIDE RECORDS SUMMARY | 2018-09-15 12:40 | XMS REPORT ---
Author Author MACHELLE TERRY [facility] Address [address] [place] [address] Care Team Providers Care Behavioral Health Counselor Name Role Phone MARA, MACHELLE Unavailable PROBLEMS Type Condition ICD9-CM Code RWS49-IV Code Onset Dates Condition Status SNOMED Code Problem Depression, major, recurrent, moderate F33.1 Active 907920729 Problem Folic acid deficiency E53.8 Active 898542237 Problem Bipolar II disorder F31.81 Active 26178055 ALLERGIES No Information ENCOUNTERS Encounter Location Date Diagnosis [place] [id number] [place] [address] 75244- 7751 Dec, [place] [id number] [place] [address] 74112- 1685 Jun, Bipolar II disorder F31.81 [facility] [place] [id number] [place] [address] 70331- 2584 May, [facility] [place] [id number] [place] [address] 89421- 6685 Apr, [facility] [place] [id number] [place] [address] 73396- 1942 Mar, [facility] [place] [id number] [place] [address] 95695- 7789 Jan, Bipolar II disorder F31.81 [facility] [place] [id number] [place] [address] 05404- 0125 Jan, Bipolar II disorder F31.81 [facility] [place] [id number] [place] [address] 45925- 4894 Dec, Bipolar II disorder F31.81 [facility] [place] [address] 41900- 7127 Oct, Bipolar II disorder F31.81 [facility] [place] [address] [place] [address] 85347- 7476 Oct, Bipolar II disorder F31.81 [facility] [place] [id number] [place] [address] 39524- 1996 September, [facility] [place] [id number] [place] [address] 30512- 3418 September, Depression, major, recurrent, moderate F33.1 [facility] [place] [address] [place] [address] 21343- 0043 September, [facility] [place] [id number] [place] [address] 39766- 2394 September, Bipolar II disorder F31.81 and Depression, major, recurrent , moderate F33.1 [facility] [place] [id number] [place] [address] 41208- 2482 September, Depression, major, recurrent, moderate F33.1 and Bipolar II disorder F31.81 [facility] [place] [address] [place] [address] 68722- 2735 September, Bipolar II disorder F31.81 [facility] [place] [id number] [place] [address] 74254- 7676 Aug, Bipolar II disorder F31.81 and Folic acid deficiency E53.8 [facility] [place] [address] [place] [address] 46961- 5857 Jul, [facility] [place] [address] [place] [address] 66471- 6177 Jul, [facility] [place] [id number] [place] [address] 60841- 9819 Jun, Bipolar II disorder F31.81 and Folic acid deficiency E53.8 [facility] [place] [id number] [place] [address] 82150- 0156 Jun, [place] [address] [facility] [place] [id number] [place] [address]- 2546 Jun, [facility] [place] [address] [facility] [place] [id number] [address]- 8446 May, Bipolar II disorder F31.81 [facility] [place] [address] [facility] [id number] [address] 2546 Apr, Bipolar II disorder F31.81 [facility] [place] [address] [facility] [id number] [address]- 0356 Jul, Bipolar II disorder F31.81 IMMUNIZATIONS No Known Immunizations SOCIAL HISTORY Never Assessed REASON FOR VISIT refill request PLAN OF CARE VITAL SIGNS MEDICATIONS Medication Instructions Dosage Frequency Start Date End Date Duration Status Pristiq 100 mg Orally Once a day [...]
--- OUTSIDE RECORDS SUMMARY | 2018-09-15 12:40 | XMS REPORT ---
Author Author MACHELLE TERRY [facility] Address [address] [place] [address] Care Team Providers Care Spanish Tutor Name Role Phone MARA, MACHELLE Unavailable PROBLEMS Type Condition ICD9-CM Code MFX71-MG Code Onset Dates Condition Status SNOMED Code Problem Depression, major, recurrent, moderate F33.1 Active 168848458 Problem Folic acid deficiency E53.8 Active 484437115 Problem Bipolar II disorder F31.81 Active 35800124 ALLERGIES No Information ENCOUNTERS Encounter Location Date Diagnosis [place] [id number] [place] [address] 59866- 7011 Dec, [place] [id number] [place] [address] 99406- 6293 Jun, Bipolar II disorder F31.81 [facility] [id number] [place] [address] 51671- 2659 May, [facility] [id number] [place] [address] 39891- 4239 Apr, [facility] [id number] [place] [address] 47024- 1972 Mar, [facility] [id number] [place] [address] 21781- 6482 Jan, Bipolar II disorder F31.81 [facility] [id number] [place] [address] 93843- 2100 Jan, Bipolar II disorder F31.81 [facility] [id number] [place] [address] 46596- 7426 Dec, Bipolar II disorder F31.81 [facility] [address] [address]89- 4596 Oct, Bipolar II disorder F31.81 [facility] [address] [place] [address] 25567- 6736 Oct, Bipolar II disorder F31.81 [facility] [id number] [place] [address] 14821- 7516 September, [facility] [id number] [place] [address] 88810- 0317 September, Depression, major, recurrent, moderate F33.1 [facility] [address] [place] [address] 20439- 7054 September, [facility] [id number] [place] [address] 57560- 5311 September, Bipolar II disorder F31.81 and Depression, major, recurrent , moderate F33.1 [facility] [id number] [place] [address] 24424- 6139 September, Depression, major, recurrent, moderate F33.1 and Bipolar II disorder F31.81 [facility] [address] [place] [address] 16379- 4335 September, Bipolar II disorder F31.81 [facility] [id number] [place] [address] 51426- 0076 Aug, Bipolar II disorder F31.81 and Folic acid deficiency E53.8 [facility] [address] [place] [address] 32618- 3921 Jul, [facility] [address] [place] [address] 96124- 7917 Jul, [facility] [id number] [place] [address] 62443- 3105 Jun, Bipolar II disorder F31.81 and Folic acid deficiency E53.8 [facility] [id number] [place] [address] 63939- 1916 Jun, [place] [address] [facility] [id number] [place] [address]46 Jun, [facility] [address] [facility] [id number] [address] 2546 May, Bipolar II disorder F31.81 [facility] [address] [facility] [id number], [place] [address]- 2546 Apr, Bipolar II disorder F31.81 [facility] [address] [facility] [id number] [address] 2546 Jul, Bipolar II disorder F31.81 IMMUNIZATIONS No Known Immunizations SOCIAL HISTORY Never Assessed REASON FOR VISIT med refill PLAN OF CARE VITAL SIGNS MEDICATIONS Medication Instructions Dosage Frequency Start Date End Date Duration Status Armodafinil 250 MG Orally Once a day 1 tablet in the morning 24h 30 days Active RESULTS No Results [...]
--- OUTSIDE RECORDS SUMMARY | 2018-09-15 12:40 | XMS REPORT ---
Author Author [facility]ERR[facility] Address [address] [place] [address] Care Team Providers Care Agricultural Equipment Operator Name Role Phone MACHELLE TERRY Unavailable PROBLEMS Type Condition ICD9-CM Code KDC03-[id number] Code Onset Dates Condition Status SNOMED Code Problem Depression, major, recurrent, moderate F33.1 Active 645762450 Problem Folic acid deficiency E53.8 Active 221384505 Problem Bipolar II disorder F31.81 Active 29362082 ALLERGIES No Information SOCIAL HISTORY Never Assessed [...]
--- OUTSIDE RECORDS SUMMARY | 2018-09-15 12:40 | XMS REPORT ---
Author Author RICARDO Germain Organization [facility] Address [address] [place] [address] Care Team Providers Care Chef Concierge Name Role Phone RICARDO Germain Unavailable PROBLEMS Type Condition ICD9-CM Code RAD71-EO Code Onset Dates Condition Status SNOMED Code Problem Depression, major, recurrent, moderate F33.1 Active 485641269 Problem Folic acid deficiency E53.8 Active 335406267 Problem Bipolar II disorder F31.81 Active 71521442 ALLERGIES No Information SOCIAL HISTORY Never Assessed PLAN OF CARE VITAL SIGNS MEDICATIONS Medication Instructions Dosage Frequency Start Date End Date Duration Status Rexulti 2 MG Orally Once a day 1 tablet 24h September, 30 days Active RESULTS No Results PROCEDURES [...]
--- OUTSIDE RECORDS SUMMARY | 2018-09-15 12:40 | XMS REPORT ---
Author Author RICARDO Germain Organization [facility] Address [address] [place] [address] Care Team Providers Care Technology Manager Name Role Phone RICARDO Germain Unavailable PROBLEMS Type Condition ICD9-CM Code GHP05-TJ Code Onset Dates Condition Status SNOMED Code Problem Depression, major, recurrent, moderate F33.1 Active 895318094 Problem Folic acid deficiency E53.8 Active 454806848 Problem Bipolar II disorder F31.81 Active 27801577 ALLERGIES No Known Allergies SOCIAL HISTORY Never Assessed PLAN OF CARE Activity Details Follow Up 3 Months Reason: VITAL SIGNS Height 60.0 in 2016-07-16 Weight 164.3 lbs 2016-07-16 Heart Rate 112 bpm 2016-07-16 Respiratory Rate 20 2016-07-16 BMI 32.08 kg/m2 2016-07-16 Blood pressure systolic 130 mmHg 2016-07-16 Blood pressure diastolic 74 mmHg 2016-07-16 MEDICATIONS Medication Instructions Dosage Frequency Start Date End Date Duration Status Hydrocodone-Acetaminophen 5-325 MG Orally Once a day 1 tablet as needed 24h Active Rexulti 1 MG Orally Once a day 1 tablet 24h 30 days Active Synthroid 112 MCG Orally Once a day 1 tablet on an empty stomach in the morning 24h Active Pristiq 100 MG Orally Once a day 1 tablet 24h 30 days Active Lamictal 150 MG Orally Twice a day 1 tablet 12h 30 days Active Armodafinil 250 MG Orally [...]
--- OUTSIDE RECORDS SUMMARY | 2018-09-15 12:40 | XMS REPORT ---
Author Author ADOLFO PATEL [facility] Address [address] [place] [address] Care Team Providers Care Locker Operator Name Role Phone ADOLFO PATEL Unavailable PROBLEMS Type Condition ICD9-CM Code JJZ50-VN Code Onset Dates Condition Status SNOMED Code Problem Depression, major, recurrent, moderate F33.1 Active 450669744 Problem Folic acid deficiency E53.8 Active 513509409 Problem Bipolar II disorder F31.81 Active 15660937 ALLERGIES No Information ENCOUNTERS Encounter Location Date Diagnosis [facility] [address] [address]- [address]28 Dec, [facility] [id number] [place] [address] 14004- 9446 Jun, Bipolar II disorder F31.81 [facility] [id number] [place] [address] 72364- 4502 May, [facility] [id number] [place] [address] 28112- 9102 Apr, [facility] [id number] [place] [address] 40558- 0551 Mar, [facility] [id number] [place] [address] 12048- 3115 Jan, Bipolar II disorder F31.81 [facility] [id number] [place] [address] 67981- 6710 Jan, Bipolar II disorder F31.81 [facility] [id number] [place] [address] 65836- 5528 Dec, Bipolar II disorder F31.81 [facility] [id number] [place] [address] 37101- 7953 Oct, Bipolar II disorder F31.81 [facility] [address] [place] Oct, Bipolar II disorder F31.81 [facility] [address] [place] September, [facility] [address] [place] [address] 04778- 3003 September, Depression, major, recurrent, moderate F33.1 [facility] [address] [place] [address] 361117- 7014 September, [facility] [id number] [place] [address] 18856- 4850 September, Bipolar II disorder F31.81 and Depression, major, recurrent , moderate F33.1 [facility] [address] [place] [address] 24050- 3958 September, Depression, major, recurrent, moderate F33.1 and Bipolar II disorder F31.81 [facility] [address] [place] [address] 75545- 2245 September, Bipolar II disorder F31.81 [facility] [address] [address]- 2766 Aug, Bipolar II disorder F31.81 and Folic acid deficiency E53.8 [facility] [address] [address]- 0085 Jul, [facility] [address] [address]- 3576 Jul, [facility] [id number] [place] [address] 23785- 7956 Jun, Bipolar II disorder F31.81 and Folic acid deficiency E53.8 [facility] [address] [place] [address] 675017- 2446 Jun, [facility] [address] [facility] [id number] [place] [address]- 2546 Jun, [facility] [address] [facility] [id number] [place] [address]- 2546 May, Bipolar II disorder F31.81 [facility] [address] [facility] [id number] [place] [address]- 2546 Apr, Bipolar II disorder F31.81 [facility] [address] [facility] [id number] [place] [address]- 2546 Jul, Bipolar II disorder F31.81 IMMUNIZATIONS No Known Immunizations SOCIAL HISTORY Never Assessed REASON FOR VISIT Refill request PLAN OF CARE VITAL SIGNS MEDICATIONS Medication Instructions Dosage Frequency Start Date End Date Duration Status Pristiq 100 mg Orally Once a day 1 tablet 24h 30 days Active Armodafinil 250 mg Orally Once a day TAKE ONE TABLET BY MOUTH ONCE DAILY IN THE MORNING 24h 30 Active Lamictal 100 mg TAKE ONE TABLET BY MOUTH ONCE DAILY 30 Active RESULTS No Results PROCEDURES No Known [...]
--- OUTSIDE RECORDS SUMMARY | 2018-09-15 12:40 | XMS REPORT ---
Author Author [facility]ERR[facility] Address [address] [place] [address] Care Team Providers Care Drop Wire Aligner Name Role Phone MACHELLE TERRY Unavailable PROBLEMS Type Condition ICD9-CM Code ZPI51-HT Code Onset Dates Condition Status SNOMED Code Problem Depression, major, recurrent, moderate F33.1 Active 234936916 Problem Folic acid deficiency E53.8 Active 558101679 Problem Bipolar II disorder F31.81 Active 31554661 ALLERGIES No Information SOCIAL HISTORY Never Assessed PLAN OF CARE VITAL SIGNS MEDICATIONS Medication Instructions Dosage Frequency Start Date End Date Duration Status Latuda 40 mg Orally Once a day 1 tablet with food 24h Oct, 90 days Active RESULTS No Results PROCEDURES [...]
--- OUTSIDE RECORDS SUMMARY | 2018-09-15 12:41 | XMS REPORT | Continuity of Care Document ---
Author Organization Unknown Address Unknown Allergies Active Description Code Type Severity Reaction Onset Reported/Identified Relationship to Patient Clinical Status Yes ADHESIVES ADHESIVES MODERATE Yes NO KNOWN DRUG ALLERGIES NO KNOWN DRUG ALLERG UNKNOWN Yes ADHESIVES MODERATE OTHER Yes NO KNOWN DRUG ALLERGIES UNKNOWN NO KNOWN DRUG ALLERG Yes No Known Drug Allergies [id number] Drug Allergy Unknown N/A 12/22/2015 Medications Medication Packaging Start Date Stop Date Route Dosage Sig LACTATED RINGERS 1000CC IV BAG INJ ml 09/12/2016 09/19/2016 CONTINUOUSEVERY 0 Hour FENTANYL INJ 100 MCG/2CC VIAL MCG 09/12/2016 09/12/2016 ONCE&0811 ONDANSETRON VIAL INJ 4 MG/2CC (ZOFRAN 2CC VIAL) MG 09/12/2016 09/12/2016 PRN ONCE CEFAZOLIN VIAL INJ 1 GM (ANCEF) GM 09/12/2016 09/12/2016 ONCE&0915 DEXAMETHASONE VIAL INJ 4 MG/CC (DECADRON VIAL) MG 09/12/2016 09/12/2016 ONCE&0916 FENTANYL INJ 100 MCG/2CC VIAL MCG 09/12/2016 09/12/2016 ONCE&1159 DIAZEPAM SYRINGE INJ 5 MG/CC (VALIUM SYRINGE) MG 09/12/2016 09/19/2016 PRN Q6H METOCLOPRAMIDE VIAL INJ 10 MG/2CC (REGLAN 2CC VIAL) MG 09/12/2016 09/12/2016 ONCE&1234 Problems Date Dx Coded Attending Type Code Diagnosis Diagnosed By 07/07/2014 LARON DOSS DC Ot 719.43 07/09/2014 Ot 789.01 09/20/2015 LARON DOSS DC Ot 719.43 JOINT PAIN-FOREARM 09/20/2015 Ot 789.01 ABDOMINAL PAIN, RIGHT UPPER QUADRANT 09/21/2015 RENA EVANS MD Ot M54.2 CERVICALGIA 10/06/2015 RENA EVANS MD Ot M54.2 CERVICALGIA 12/22/2015 GLENROY HARRISON MD Ot D64.9 ANEMIA, UNSPECIFIED 12/22/2015 GLENROY HARRISON MD, Ot N80.9 ENDOMETRIOSIS, UNSPECIFIED 12/22/2015 GLENROY HARRISON MD, Ot Z01.812 ENCOUNTER FOR PREPROCEDURAL LABORATORY E 12/22/2015 GLENROY HARRISON MD Ot Z11.2 ENCOUNTER FOR SCREENING FOR OTHER BACTER 12/26/2015 GLENROY HARRISON MD, Ot D64.9 ANEMIA, UNSPECIFIED 12/26/2015 GLENROY HARRISON MD, Ot N80.9 ENDOMETRIOSIS, UNSPECIFIED 12/26/2015 GLENROY HARRISON MD, Ot Z01.812 ENCOUNTER FOR PREPROCEDURAL LABORATORY E 12/26/2015 GLENROY HARRISON MD, Ot Z11.2 ENCOUNTER FOR SCREENING FOR OTHER BACTER 12/28/2015 ROMARIO GAR, LARON Collins Ot 719.43 JOINT PAIN-FOREARM 12/28/2015 Ot 789.01 ABDOMINAL PAIN, RIGHT UPPER QUADRANT 12/28/2015 NATHAN MARADIAGA, RENA Mckinney Ot M54.2 CERVICALGIA 12/29/2015 GLENROY HARRISON MD Ot N73.6 FEMALE PELVIC PERITONEAL ADHESIONS (POST 12/29/2015 GLENROY HARRISON MD Ot N80.3 ENDOMETRIOSIS OF PELVIC PERITONEUM 12/29/2015 GLENROY HARRISON MD Ot N80.5 ENDOMETRIOSIS OF INTESTINE 12/29/2015 GLENROY HARRISON MD Ot N83.20 UNSPECIFIED OVARIAN CYSTS 12/29/2015 GLENROY HARRISON MD, Ot 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 01/02/2016 GLENROY HARRISON MD Ot N73.6 FEMALE PELVIC PERITONEAL ADHESIONS (POST 01/02/2016 GLENROY HARRISON MD Ot N80.3 ENDOMETRIOSIS OF PELVIC PERITONEUM 01/02/2016 GLENROY HARRISON MD Ot N80.5 ENDOMETRIOSIS OF INTESTINE 01/02/2016 GLENROY HARRISON MD Ot N83.20 UNSPECIFIED OVARIAN CYSTS 01/02/2016 GLENROY HARRISON MD Ot 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 04/11/2016 A V72.83 OTHER SPECIFIED PREOPERATIVE EXAMINATION 04/11/2016 A Z01.818 ENCOUNTER FOR OTHER PREPROCEDURAL EXAMINATION 04/13/2016 Luther Wagner V12.72 PERSONAL HISTORY OF COLONIC POLYPS 04/13/2016 Luther Wagner Z86.010 PERSONAL HISTORY OF COLONIC POLYPS 04/13/2016 Luther Wagner V10.87 PERSONAL HISTORY OF MALIGNANT NEOPLASM OF THYROID 04/13/2016 Luther Wagner V12.72 PERSONAL HISTORY OF COLONIC POLYPS 04/13/2016 Luther Wagner Z85.850 PERSONAL HISTORY OF MALIGNANT NEOPLASM OF THYROID 04/13/2016 Luther Wagner Z86.010 PERSONAL HISTORY OF COLONIC POLYPS 04/17/2016 Luther Wagner 455.6 04/17/2016 Luther Wagner 455.9 04/17/2016 Luther Wagner 530.81 04/17/2016 Luther Wagner 535.50 04/17/2016 Luther Wagner 552.3 04/17/2016 Luther Wagner 780.79 OTHER MALAISE AND FATIGUE 04/17/2016 Luther Wagner 787.01 04/17/2016 Luther Wagner 787.1 HEARTBURN 04/17/2016 Luther Wagner K21.9 GASTRO-ESOPHAGEAL REFLUX DISEASE WITHOUT ESOPHAGITIS 04/17/2016 Luther Wagner K29.60 OTHER GASTRITIS WITHOUT BLEEDING 04/17/2016 Luther Wagner K44.9 DIAPHRAGMATIC HERNIA WITHOUT OBSTRUCTION OR GANGRENE 04/17/2016 Luther Wagner K64.4 RESIDUAL HEMORRHOIDAL SKIN TAGS 04/17/2016 Luther Wagner K64.8 OTHER HEMORRHOIDS 04/17/2016 Luther Wagner R11.2 04/17/2016 Luther Wagner R12 HEARTBURN 04/17/2016 Luther Wagner R53.83 OTHER FATIGUE 04/17/2016 Luther Wagner V10.87 PERSONAL HISTORY OF MALIGNANT NEOPLASM OF THYROID 04/17/2016 Luther Wagner W V12.72 PERSONAL HISTORY OF COLONIC POLYPS 04/17/2016 Luther Wagner W Z85.850 PERSONAL HISTORY OF MALIGNANT NEOPLASM OF THYROID 04/17/2016 Luther Wagner W Z86.010 PERSONAL HISTORY OF COLONIC POLYPS 05/03/2016 ROMARIO RIN, LARON Collins Ot 719.43 JOINT PAIN-FOREARM 05/03/2016 Ot 789.01 ABDOMINAL PAIN, RIGHT UPPER QUADRANT 05/03/2016 NATHAN MARADIAGA, RENA Mckinney Ot M54.2 CERVICALGIA 05/17/2016 LUTHER WAGNER DO Ot R10.9 UNSPECIFIED ABDOMINAL PAIN 09/12/2016 Luther Wagner A 575.11 CHRONIC CHOLECYSTITIS 09/12/2016 Luther Wagner A K81.1 CHRONIC CHOLECYSTITIS 07/23/2017 IPSEN, VANDANA W 723.1 CERVICALGIA 07/23/2017 IPSEN, VANDANA A 724.2 LUMBAGO 07/23/2017 IPSEN, VANDANA W M54.2 CERVICALGIA 07/23/2017 IPSEN, VANDANA A M54.5 LOW BACK PAIN 08/29/2017 Brokob, Danitza W 466.0 ACUTE BRONCHITIS 08/29/2017 Brokob, Danitza W 789.09 ABDOMINAL PAIN, OTHER SPECIFIED SITE; MULTIPLE SITES 08/29/2017 Brokob, Danitza W J20.9 ACUTE BRONCHITIS, UNSPECIFIED 08/29/2017 Brokob, Danitza W R10.1 PAIN LOCALIZED TO UPPER ABDOMEN 08/29/2017 Brokob, Danitza W 466.0 ACUTE BRONCHITIS 08/29/2017 Brokob, Danitza W 789.09 ABDOMINAL PAIN, OTHER SPECIFIED SITE; MULTIPLE SITES 08/29/2017 Brokob, Danitza W J20.9 ACUTE BRONCHITIS, UNSPECIFIED 08/29/2017 Brokob, Danitza W R10.1 PAIN LOCALIZED TO UPPER ABDOMEN 08/30/2017 Brokob, Danitza W 789.09 ABDOMINAL PAIN, OTHER SPECIFIED SITE; MULTIPLE SITES 08/30/2017 Brokob, Danitza W R10.1 PAIN LOCALIZED TO UPPER ABDOMEN 08/30/2017 Brokob, Danitza W 789.09 ABDOMINAL PAIN, OTHER SPECIFIED SITE; MULTIPLE SITES 08/30/2017 Brokob, Danitza W R10.1 PAIN LOCALIZED TO UPPER ABDOMEN 09/03/2017 ROMARIO GAR, LARON L Ot 719.43 JOINT PAIN-FOREARM 09/03/2017 Ot 789.01 ABDOMINAL PAIN, RIGHT UPPER QUADRANT 09/03/2017 NATHAN MARADIAGA, RENA Mckinney Ot M54.2 CERVICALGIA 09/03/2017 KRISTY CARRIZALES, RHONDATIE Ot R10.9 UNSPECIFIED ABDOMINAL PAIN 10/10/2017 ROMARIO GAR, LARON Collins Ot 719.43 JOINT PAIN-FOREARM 10/10/2017 Ot 789.01 ABDOMINAL PAIN, RIGHT UPPER QUADRANT 10/10/2017 NATHAN MARADIAGA, RENA Mckinney Ot M54.2 CERVICALGIA 10/10/2017 KRISTY DO, RHONDATIE Ot R10.9 UNSPECIFIED ABDOMINAL PAIN 10/21/2017 Mamie Reynolds W R89.9 UNSPECIFIED ABNORMAL FINDING IN SPECIMENS FROM OTHER ORGANS, SYSTEMS AND TISSUES 10/21/2017 Mamie Reynolds W R89.9 UNSPECIFIED ABNORMAL FINDING IN SPECIMENS FROM OTHER ORGANS, SYSTEMS AND TISSUES 10/22/2017 MALCOLM MARADIAGA, OTTO Herrera Ot G47.33 OBSTRUCTIVE SLEEP APNEA (ADULT) (PEDIATR 01/03/2018 Giselle Reynoldsa W 244.9 UNSPECIFIED HYPOTHYROIDISM 01/03/2018 Mamie Reynolds W E03.9 HYPOTHYROIDISM, UNSPECIFIED 02/12/2018 Brokob, Danitza W 785.0 TACHYCARDIA, UNSPECIFIED 02/12/2018 Brokob, Danitza W R00.0 TACHYCARDIA, UNSPECIFIED 02/12/2018 Brokob, Danitza W 785.0 TACHYCARDIA, UNSPECIFIED 02/12/2018 Brokob, Danitza W R00.0 TACHYCARDIA, UNSPECIFIED 03/06/2018 A 723.1 CERVICALGIA 03/06/2018 A M54.2 CERVICALGIA 03/10/2018 Brokob, Danitza W 785.0 TACHYCARDIA, UNSPECIFIED 03/10/2018 Brokob, Danitza W R00.0 TACHYCARDIA, UNSPECIFIED 07/23/2018 GLENROY HARRISON MD, Ot Z12.31 ENCNTR SCREEN MAMMOGRAM FOR MALIGNANT NE 09/09/2018 GLENROY HARRISON MD, Ot Z01.818 ENCOUNTER FOR OTHER PREPROCEDURAL EXAMIN 09/10/2018 GLENROY HARRISON MD, Ot Z01.818 ENCOUNTER FOR OTHER PREPROCEDURAL EXAMIN Procedures There is no data. Results Test Result Range Complete blood count (CBC) with automated white blood cell (WBC) differential - 12/22/15 08:45 Blood leukocytes automated count (number/volume) 5.6 10*3/uL 4.3-11.0 Blood erythrocytes automated count (number/volume) 4.09 10*6/uL 4.35-5.85 Venous blood hemoglobin measurement (mass/volume) 12.7 g/dL 11.5-16.0 Blood hematocrit (volume fraction) 36 % 35-52 Automated erythrocyte mean corpuscular volume 89 [foz_us] 80-99 Automated erythrocyte mean corpuscular hemoglobin (mass per erythrocyte) 31 pg 25-34 Automated erythrocyte mean corpuscular hemoglobin concentration measurement ( mass/volume) 35 g/dL 32-36 Automated erythrocyte distribution width ratio 12.8 % 10.0-14.5 Automated blood platelet count (count/volume) 275 10*3/uL 130-400 Automated blood platelet mean volume measurement 10.3 [foz_us] 7.4-10.4 Automated blood neutrophils/100 leukocytes 60 % 42-75 Automated blood lymphocytes/100 leukocytes 27 % 12-44 Blood monocytes/100 leukocytes 6 % 0-12 Automated blood eosinophils/100 leukocytes 7 % 0-10 Automated blood basophils/100 leukocytes 1 % 0-10 Blood neutrophils automated count (number/volume) 3.4 10*3 1.8-7.8 Blood lymphocytes automated count (number/volume) 1.5 10*3 1.0-4.0 Blood monocytes automated count (number/volume) 0.3 10*3 0.0-1.0 Automated eosinophil count 0.4 10*3/uL 0.0-0.3 Automated blood basophil count (count/volume) 0.0 10*3/uL 0.0-0.1 Methicillin resistant Staphylococcus aureus (MRSA) screening culture - 09:40 Methicillin resistant Staphylococcus aureus (MRSA) screening culture NEG NRG Urine beta human chorionic gonadotropin (hCG) measurement - 12/28/15 11:02 Urine beta human chorionic gonadotropin (hCG) measurement NEGATIVE NEGATIVE Protime - 04/13/16 17:04 INR 1.0 1.0-4.0 Protime 11.1 Sec 9.9-12.8 Test-Serum - 04/17/16 10:11 Preg Test-S Negative Negative EKG - 04/17/16 11:01 EKG Complete Surgical Pathology - 04/17/16 13:15 Surg Path Sent to [facility] CBC With Differential/Platelet - 05/18/16 15:59 WBC 7.3 x10E3/uL 3.4-10.8 RBC 4.44 x10E6/uL 3.77-5.28 Hemoglobin 13.1 g/dL 11.1-15.9 Hematocrit 39.7 % 34.0-46.6 MCV 89 fL 79-97 MCH 29.5 pg 26.6-33.0 MCHC 33.0 g/dL 31.5-35.7 RDW 16.2 % 12.3-15.4 Platelets 320 x10E3/uL 150-379 Neutrophils 63 % Lymphs 27 % Monocytes 7 % Eos 2 % Basos 1 % Neutrophils (Absolute) 4.6 x10E3/uL 1.4-7.0 Lymphs (Absolute) 2.0 x10E3/uL 0.7-3.1 Monocytes(Absolute) 0.5 x10E3/uL 0.1-0.9 Eos (Absolute) 0.2 x10E3/uL 0.0-0.4 Baso (Absolute) 0.1 x10E3/uL 0.0-0.2 Immature Granulocytes 0 % Immature Grans (Abs) 0.0 x10E3/uL 0.0-0.1 Comp. Metabolic Panel (14) - 05/18/16 15:59 Glucose, Serum 89 mg/dL 65-99 BUN 8 mg/dL 6-24 Creatinine, Serum 0.73 mg/dL 0.57-1.00 eGFR If NonAfricn Am 101 mL/min/1.73 >59 eGFR If Africn Am 117 mL/min/1.73 >59 BUN/Creatinine Ratio 11 9-23 Sodium, Serum 139 mmol/L 134-144 Potassium, Serum 3.9 mmol/L 3.5-5.2 Chloride, Serum 98 mmol/L 96-106 Carbon Dioxide, Total 23 mmol/L 18-29 Calcium, Serum 9.6 mg/dL 8.7-10.2 Protein, Total, Serum 7.0 g/dL 6.0-8.5 Albumin, Serum 4.2 g/dL 3.5-5.5 Globulin, Total 2.8 g/dL 1.5-4.5 A/G Ratio 1.5 1.1-2.5 Bilirubin, Total <0.2 mg/dL 0.0-1.2 Alkaline Phosphatase, S 45 IU/L 39-117 AST (SGOT) 29 IU/L 0-40 ALT (SGPT) 41 IU/L 0-32 Hemoglobin A1c - 05/18/16 15:59 Hemoglobin A1c 5.3 % 4.8-5.6 Folate (Folic Acid), Serum - 05/18/16 15:59 Folate (Folic Acid), Serum >20.0 ng/mL >3.0 Iron, Serum - 05/18/16 15:59 Iron, Serum 56 ug/dL 27-159 Vitamin B12 - 05/18/16 15:59 Vitamin B12 593 pg/mL 211-946 Thyroid Stimulating Hormone - 05/19/16 09:32 TSH 6.18 mIU/mL 0.32-5.00 Thyroglobulin Antibody and Thyroglobulin - 05/19/16 09:32 THYROGLOBULIN ANTIBODY 0.0 IU/ML 0.0-0.9 THYROGLOBULIN BY THELMA <0.1 NG/ML 1.5-38.5 Anti-Thyroid Peroxidase Ab - 05/19/16 09:32 ANTI-THYROID PEROXIDASE AB 9.7 IU/ML Lipid Panel - 05/19/16 09:37 C/HDL 2.5 3.7-6.7 Cholesterol 147 mg/dL 100-240 HDL 59 mg/dL 30-85 LDL-Calculated 71 mg/dL 0-100 Trig 87 mg/dL 35-160 VLDL 17 mg/dL 0-42 Thyroid Stimulating Hormone - 07/03/16 15:53 TSH 1.18 mIU/mL 0.32-5.00 Protime - 09/05/16 08:17 INR 1.0 1.0-4.0 Protime 11.2 Sec 9.9-12.8 Nasal Culture - 09/05/16 08:17 FINAL CULTURE RESULTS MRSA Negative Nasal Culture MEDIA PLATED Setup at 08:47 on 09/05/2016 Test-Serum - 09/12/16 08:56 Preg Test-S Negative Negative Surgical Pathology - 09/12/16 10:02 Surg Path Sent to [facility] Folate - 10/05/16 13:53 Folate 17.80 ng/mL 7.00-31.40 Thyroid Stimulating Hormone - 10/05/16 13:53 TSH 0.68 mIU/mL 0.32-5.00 Thyroid Stimulating Hormone - 12/10/16 16:00 TSH 1.33 mIU/mL 0.32-5.00 Lipase - 12/25/16 13:01 Lipase 54 U/L 7-59 Comprehensive Metabolic Panel - 12/25/16 13:01 Albumin 4.2 g/dL 3.6-5.1 ALP 43 U/L 35-130 ALT 21 U/L 6-45 Anion Gap 13 6-14 AST 19 U/L 2-40 BUN 7 mg/dL 5-25 Calcium 9.0 mg/dL 8.3-10.4 Chloride 106 mmol/L 95-114 CO2 25 mEq/L 22-33 Creat 0.74 mg/dL 0.50-1.50 eGFR 85 mL/min/1.73m2 >59 Globulin 2.7 g/dL 2.3-3.5 Glucose 106 mg/dL 70-110 Osmo 288 280-295 Potassium 3.8 mmol/L 3.5-5.3 Sodium 140 mmol/L 134-148 TBil 0.2 mg/dL 0.2-1.2 TP 6.9 g/dL 6.0-8.3 Thyroid Stimulating Hormone - 03/12/17 17:21 TSH 12.02 mIU/mL 0.32-5.00 Ehrlichia Ab Panel - 04/02/17 09:46 E. chaffeensis (HME) IgG Titer Negative Neg:<1:64 E. chaffeensis (HME) IgM Titer Negative Neg:<1:20 HGE IgG Titer Negative Neg:<1:64 HGE IgM Titer Negative Neg:<1:20 Lyme Ab/Western Blot Reflex - 04/02/17 09:46 Lyme IgG/IgM Ab <0.91 ISR 0.00-0.90 Lyme Disease Ab, Quant, IgM <0.80 index 0.00-0.79 Filipe Mtn Spotted Fev, IgG, Qn - 04/02/17 09:46 RMSF, IgG, EIA Negative Negative Filipe Mtn Spotted Fever, IgM - 04/02/17 09:46 Filipe Mtn Spotted Fever, IgM 0.52 index 0.00-0.89 ASO, Quantitative - 04/02/17 09:46 ASO, Quantitative 125.00 IU/ml 0.00-200.00 Uric Acid - 04/02/17 09:46 Uric Acid 2.1 mg/dL 2.6-7.2 Creatine Kinase - 04/02/17 09:46 CK 51 U/L 26-174 Urine Culture - 04/02/17 09:46 PRELIM CULTURE RESULTS 20,000-50,000 Gram Positive [id number] Negative [id number] Skin Contaminant FINAL CULTURE RESULTS 20,000-50,000 Gram Positive Mixed Manasa [id number] Skin Contaminant [id number] Further Workup done MEDIA PLATED Setup at 10:54 on 04/02/2017 CULTURE SOURCE void Filipe Mtn Spotted Fever, IgM - 04/02/17 09:46 FILIPE MTN SPOTTED FEVER, IGM 0.52 INDEX 0.00-0.89 Ehrlichia Ab Panel - 04/02/17 09:46 E. CHAFFEENSIS (HME) IGG TITER NEGATIVE NEG:<1:64 E. CHAFFEENSIS (HME) IGM TITER NEGATIVE NEG:<1:20 HGE IGG TITER NEGATIVE NEG:<1:64 HGE IGM TITER NEGATIVE NEG:<1:20 Thyroid Stimulating Hormone - 04/23/17 16:58 TSH 3.52 mIU/mL 0.32-5.00 Thyroid Stimulating Hormone - 07/25/17 16:09 TSH 1.06 mIU/mL 0.32-5.00 VIT B-12 - 07/25/17 16:09 Vitamin B12 454.00 pg/mL 213.00-816.00 Folate - 07/25/17 16:09 Folate 14.20 ng/mL 7.00-31.40 Vitamin D, 25 OH - 07/25/17 16:09 Vitamin D, 25 OH 39.90 ng/mL 25.00-100.00 Lamotrigine (Lamictal), Serum - 07/25/17 16:09 LAMOTRIGINE, SERUM NONE DETECTED UG/ML 2.0-20.0 CBC with Auto Diff - 08/29/17 13:49 Baso% 0.30 % 0.00-2.50 Eos 0.4 K/uL 0.0-0.7 Eos% 6.1 % 0.0-7.0 Hct 34.5 % 36.0-46.0 Hgb 11.4 g/dL 13.0-15.0 Lym 1.16 K/uL 0.60-3.40 Lym% 17.8 % 10.0-50.0 MCH 27.9 pg 27.0-31.0 MCHC 33.0 g/dL 32.0-36.0 MCV 84.4 fL 80.0-97.0 Hawkins% 6.9 % 0.0-12.0 MPV 10.4 fL 7.4-10.0 Monica% 68.9 % 37.0-80.0 Plt 360 K/uL 150-400 RBC 4.09 M/uL 3.60-5.00 RDW 14.9 % 11.6-14.8 WBC 6.53 K/uL 5.00-10.00 Monica 4.50 K/uL 2.00-6.90 Hawkins 0.5 K/uL 0.0-0.9 Baso 0.0 K/uL 0.0-0.2 Lipase - 08/30/17 10:22 Lipase 58 U/L 7-59 Lipase - 10/21/17 15:47 Lipase 60 U/L 7-59 Comprehensive Metabolic Panel - 10/21/17 15:47 Albumin 4.1 g/dL 3.6-5.1 ALP 45 U/L 35-130 ALT 17 U/L 6-45 Anion Gap 17 6-14 AST 16 U/L 2-40 BUN 8 mg/dL 5-25 Calcium 9.1 mg/dL 8.3-10.4 Chloride 106 mmol/L 95-114 CO2 22 mEq/L 22-33 Creat 0.65 mg/dL 0.50-1.50 eGFR 99 mL/min/1.73m2 >59 Globulin 2.5 g/dL 2.3-3.5 Glucose 84 mg/dL 70-110 Osmo 289 280-295 Potassium 3.9 mmol/L 3.5-5.3 Sodium 141 mmol/L 134-148 TBil 0.2 mg/dL 0.2-1.2 TP 6.6 g/dL 6.0-8.3 Thyroid Stimulating Hormone - 01/03/18 12:02 TSH 7.08 mIU/mL 0.32-5.00 Thyroid Stimulating Hormone - 02/12/18 11:50 TSH 1.24 mIU/mL 0.32-5.00 Holter Monitor 48 hour - 03/08/18 12:15 Holter Monitor 48 Hour Complete FSH, Serum - 03/10/18 12:55 FSH 6.2 mIU/mL Thyroid Stimulating Hormone - 03/10/18 12:55 TSH 1.87 mIU/mL 0.32-5.00 FSH, Serum - 03/10/18 12:55 FSH 6.2 MIU/ML Thyroglobulin Antibody and Thyroglobulin - 03/10/18 12:55 THYROGLOBULIN ANTIBODY <1.0 IU/ML 0.0-0.9 THYROGLOBULIN BY THELMA <0.1 NG/ML 1.5-38.5 TgAb+Thyroglobulin,THELMA or TRISTIN - 03/10/18 12:55 Thyroglobulin Antibody <1.0 IU/mL 0.0-0.9 Thyroglobulin by THELMA - 03/10/18 12:55 Thyroglobulin by THELMA <0.1 ng/mL 1.5-38.5 Encounters ACCT No. Visit Date/Time Discharge Status Pt. Type Provider Facility Loc./Unit Complaint [id number] 09/09/2018 10:58:00 09/09/2018 13:08:00 DIS Outpatient GLENROY HARRISON MD [facility] [address] PREOP CHRONIC PELVIC PAIN [id number] 07/23/2018 13:22:00 07/23/2018 23:59:59 CLS Outpatient GLENROY HARRISON MD [facility] [address] RAD SCREENING [id number] 10/15/2017 20:05:00 10/16/2017 06:35:00 DIS Outpatient OTTO FOWLER MD [facility] [address] SLEEP G47.33 SLEEP APNEA [id number] 05/03/2016 09:57:00 05/03/2016 23:59:59 CLS Outpatient LUTHER WAGNER DO [facility] [address] CARD POSTPRANDIAL PAIN [id number] 12/28/2015 10:57:00 12/29/2015 15:15:00 DIS Outpatient GLENROY HARRISON MD [facility] [address] SDC CHRONIC PELVIC PAIN, [id number] 12/22/2015 09:17:00 12/22/2015 10:32:00 DIS Outpatient GLENROY HARRISON MD [facility] [address] PREOP CHRONIC PELVIC PAIN [id number] 09/20/2015 09:41:00 09/20/2015 23:59:59 CLS Outpatient RENA EVANS MD [facility] [address] RAD CERVICALGIA [id number] 01/14/2014 13:53:00 01/14/2014 23:59:59 CLS Outpatient LARON DOSS DC [facility] [address] RAD WRIST PAIN [id number] 09/15/2018 13:00:00 PEN Preadmit [facility] [id number] 07/07/2014 09:22:00 Document Registration [id number] 04/04/2017 15:24:00 Document Registration [id number] 03/11/2018 08:45:00 Document Registration [id number] 04/03/2017 23:09:00 Document Registration [id number] 03/10/2018 12:52:00 03/10/2018 23:59:00 DIS Outpatient GLENROY HARRISON [id number] 03/08/2018 12:15:00 03/08/2018 23:59:00 DIS Outpatient Danitza Robertson [id number] 02/12/2018 11:09:00 02/12/2018 23:59:00 DIS Outpatient Danitaz Robertson [id number] 01/03/2018 11:58:00 01/03/2018 23:59:00 DIS Outpatient Mamie Reynolds [id number] 12/18/2017 00:00:00 12/18/2017 23:59:00 DIS Outpatient KUMAR HILARIO [id number] 10/21/2017 15:45:00 10/21/2017 23:59:00 DIS Outpatient Mamie Reynolds [id number] 08/30/2017 09:53:00 08/30/2017 23:59:00 DIS Outpatient Danitza Robertson [id number] 08/29/2017 13:47:00 08/29/2017 23:59:00 DIS Outpatient Danitza Robertson [id number] 07/25/2017 15:55:00 07/25/2017 23:59:00 DIS Outpatient Mamie Reynolds [id number] 04/29/2017 12:00:00 07/23/2017 13:15:00 DIS Outpatient VANDANA MEZA [id number] 07/10/2017 08:08:00 07/10/2017 23:59:00 DIS Outpatient GLENROY HARRISON [id number] 04/23/2017 00:00:00 04/23/2017 23:59:00 DIS Outpatient Wale Cerda [id number] 04/02/2017 09:46:00 04/02/2017 23:59:00 DIS Outpatient Mamie Reynolds [id number] 03/12/2017 17:19:00 03/12/2017 23:59:00 DIS Outpatient Wale Cerda [id number] 12/25/2016 12:54:00 12/25/2016 23:59:00 DIS Outpatient ALBERT JULIANJIM [id number] 12/10/2016 16:00:00 12/10/2016 23:59:00 DIS Outpatient Wale Cerda [id number] 12/10/2016 16:04:00 12/10/2016 16:04:00 CAN Outpatient Wale Cerda [id number] 10/05/2016 13:47:00 10/05/2016 23:59:00 DIS Outpatient Tracy Bradford [id number] 09/12/2016 00:00:00 09/12/2016 13:38:00 DIS Outpatient Luther Wagner [id number] 09/12/2016 00:00:00 09/12/2016 00:00:00 CAN Outpatient Luther Wagner [id number] 09/05/2016 08:09:00 09/05/2016 23:59:00 DIS Outpatient Luther Wagner [id number] 07/11/2016 00:00:00 07/11/2016 23:59:00 DIS Outpatient KUMAR HILARIO [id number] 07/03/2016 15:45:00 07/03/2016 23:59:00 DIS Outpatient Luther Wagner [id number] 05/19/2016 09:14:00 05/19/2016 23:59:00 DIS Outpatient Wale Cerda [id number] 04/24/2016 12:03:00 04/24/2016 23:59:00 DIS Outpatient GLENROY HARRISON [id number] 04/17/2016 00:00:00 04/17/2016 12:55:00 DIS Outpatient KristyLuther [id number] 04/13/2016 17:01:00 04/13/2016 23:59:00 DIS Outpatient Luther Wagner [id number] 01/07/2018 12:01:56 Document Registration [id number] 09/11/2016 14:58:41 Document Registration [id number] 04/13/2016 09:46:30 Document Registration [id number] 05/19/2016 13:05:00 Document Registration [id number] 07/09/2018 18:20:00 07/09/2018 23:59:59 CLS Outpatient MARSHA TATE LAC [facility] [id number] 03/11/2018 18:13:00 Document Registration
[2018-09-15] MEDS ORDERED: ceFAZolin INJECTION 1,000 MG VIAL IV ONE (12:45)
[2018-09-15] MEDS ORDERED: LACTATED RINGERS 1,000 ML IV ONE ×2 (13:53→14:04)
[2018-09-15] MEDS ORDERED: GLYCOPYRROLATE 0.2 MG/ML (ROBINUL) 2 ML VIAL ONE (13:55)
[2018-09-15] MEDS ORDERED: NEOSTIGMINE 1 MG/ML 5 ML SYRINGE ONE (13:55)
[2018-09-15] MEDS ORDERED: ONDANSETRON 4 MG/2 ML (SDV) Z0FRAN IVP PRN (14:15)
[2018-09-15] MEDS ORDERED: fentaNYL INJECTION 100 MCG/2 ML AMP IVP ONE (14:15)
[2018-09-15] MEDS ORDERED: morphine INJ 10 MG/ML 1ML (SYR OR VIAL) IVP ONE (14:15)
[2018-09-15] MEDS ORDERED: MEPERIDINE (DEMEROL) INJ 50 MG/ML IVP ONE (14:15)
[2018-09-15] MEDS ORDERED: KETOROLAC 30 MG/ML VIAL ONE (14:19)
[2018-09-15] MEDS ORDERED: ESTROGENS CONJ IV 25 MG/5 ML (PREMARIN) VIAL ONE (14:19)
[2018-09-15] MEDS ORDERED: morphine INJ 10 MG/ML 1ML (SYR OR VIAL) ONE (14:19)
[2018-09-15] MEDS: KETOROLAC 30 MG/ML VIAL IVP SCH ×2 (14:24→20:48)
--- NOTE | 2018-09-15 14:32 | Anesthesia-General Post-Op ---
General Patient Condition Mental Status/LOC: Same as Preop Cardiovascular: Satisfactory Nausea/Vomiting: Absent Respiratory: Satisfactory Pain: Controlled Complications: Absent Post Op Complications Complications None Follow Up Care/Instructions Patient Instructions None needed. Anesthesia/Patient Condition Patient Condition Patient is doing well, no complaints, stable vital signs, no apparent adverse anesthesia problems. No complications reported per nursing. PHILIP GARCIA CRNA Sep 15, 2018 14:32
[2018-09-15] MEDS ORDERED: PROMETHAZINE INJ 25 MG/ML (PHENERGAN) AMP ONE (14:35)
[2018-09-15] MEDS ORDERED: PROMETHAZINE INJ 25 MG/ML (PHENERGAN) AMP IVP ONE (14:45)
--- NOTE | 2018-09-15 15:15 | NUR ---
Patient arrived to room 306 via bed from PACU accompanied by Bibi Fowler RN. Report received and care of patient assumed.
--- NOTE | 2018-09-15 15:29 | NUR ---
Admission assessment completed and vital signs obtained, see interventions. IV converted to pump tubing, SCD's on bilaterally, and carr to dependent drainage. Patient's sister in room. Patient "groggy" but wakens to name. Patient denies any pain currently.
--- NOTE | 2018-09-15 15:40 | NUR ---
Report to Harlan Garcia RN.
--- NOTE | 2018-09-15 16:10 | NUR ---
PT AWAKE, IN BED, TALKING WITH VISITORS AT THE BEDSIDE. NO NEEDS VOICED AT THIS TIME.
--- NOTE | 2018-09-15 19:40 | NUR ---
PT SITTING UP IN BED, S/O AT THE BEDSIDE. ZELAYA EMPTIED. PT CALLED DOWN TO ROOM SERVICE TO REQUEST MORE DRINKS. NO FURTHER NEEDS VOICED. CALL LIGHT WITHIN REACH.
--- NOTE | 2018-09-15 22:29 | OPERATIVE REPORT ---
DATE OF SERVICE: 09/15/2018 PREOPERATIVE DIAGNOSES: Chronic pelvic pain with a history of endometriosis and with history of dysfunctional bleeding. POSTOPERATIVE DIAGNOSES: Chronic pelvic pain with a history of endometriosis and with history of dysfunctional bleeding with extensive recurrent endometriosis and extensive pelvic adhesions. OPERATIVE PROCEDURE: Total laparoscopic hysterectomy with bilateral salpingo-oophorectomy as well as extensive adhesiolysis and destruction of endometriosis. OPERATIVE DESCRIPTION: With the patient in the supine position under satisfactory general anesthesia, she was repositioned in the dorsal lithotomy position in the [facility] and prepped and draped in the usual fashion for abdominal and vaginal surgery with robotic assistance. Weighted speculum was placed in the posterior fornix of vagina, cervix exposed and grasped anteriorly with single tooth tenaculum. Uterus was sounded to 9.5 cm with uterine sound. The cervix was then serially dilated with Jeff dilators to accommodate a Rita II manipulator, which was placed using a 6 mm x 8 cm uterine probe and a 25 mm colpotomy ring. Sutures of #1 Vicryl were placed at 3 and 9 o'clock positions of the cervix to affix the uterus to the manipulator. Stein catheter was placed in the urinary bladder and the patient was brought in low dorsal lithotomy position with the speculum and the tenaculum removed from the vagina. A 12 mm incision was made 4 cm superior to the umbilicus. Veress needle was placed through that incision into the abdominal cavity and correct placement confirmed with a water drop test. The abdomen was insufflated with 2.4 liters of carbon dioxide and the Veress needle was removed and a 12 mm Optiview laparoscopic port placed under direct vision. The abdominal wall was transilluminated and 8 mm ports were placed through incisions of above sizes 8 cm lateral to the umbilicus at the level of the umbilicus. All three port sites were infiltrated with 0.25% Marcaine with epinephrine prior to incisions. The patient was now placed in Trendelenburg allowing the bowel to spill out of the pelvis. The da Jourdan column was advanced on to the patient and docked and then operative instruments were placed in the right and left lateral ports and I retired to the [employer] Jourdan console for the procedure. The pelvis was first examined. There were extensive adhesions of both ovaries to the ovarian fossa and into the cul-de-sac, more so on the left than on the right. Both sides again were fairly extensively involved. The right ureter was readily apparent. The left was not. The sigmoid was adherent over the IP ligament and over the pelvic brim. The fallopian tube was adherent to the ovary and to the pelvic brim on the left. The sigmoid and rectosigmoid were adherent to the posterior lower uterine segment itself. The uterus contained numerous lobular masses consistent with fibroids, but also was extensively involved with endometriosis and adenomyosis as well. The laparoscope was rotated. The appendix was surgically absent. The attention was brought back to the pelvis. Using a monopolar shear on the right and a bipolar fenestrated grasper on the left, first the adhesions were taken free in the cul-de-sac and the right ovary and then from the left ovary from both the ovarian fossa and the posterior surface of the uterus and to the sigmoid and rectosigmoid. The adhesions of the bowel were taken down adequate to allow complete access to the IP ligament and in the process of doing this, the left ureter was exposed. Retroperitoneum was seemed to peristalse. It was very close to the areas of dissection, but was intact at this point. We maintained the integrity of the ureter now throughout the rest of the procedure. With the adnexa freed on both sides and the cul-de-sac freed with restoring anatomy to a more normal appearance and position, then the procedure was initiated by using the vessel sealer on the right, grasping and elevating the right tube and ovary and then clamping, cauterizing, dividing the IP ligament, the mesovarium, the round ligament and the broad ligaments over to the side of the uterus and down on to the cardinal ligament on the left. Same procedure was performed on the left. The initial side was right and the same procedure was performed on left, allowing eventually for removal of both tubes and ovaries. With the uterus anterior, lower uterine segment peritoneum was exposed and then using a monopolar shear in place of the vessel sealer, the anterior lower uterine segment peritoneum was divided allowing the bladder to be dissected down off the lower uterine segment. Colpotomy incision was then initiated at the 12 o'clock position over the colpotomy ring and then continued circumferentially until the entire colpotomy ring was exposed. The uterus with the tubes and ovaries still attached was then extracted through the vagina. There was a fragment of the left ovary that had been from the ovary during the dissection that had been placed in the vagina and it was located and removed through the vagina as well. With the uterus removed, the vaginal cuff was closed with two sutures of V-Loc cece sutures starting first from the right angle and continuing just past the midpoint of the vaginal cuff and then from the left angle back the other way. Care was taken to include the uterine vessel pedicles into the closure to ensure hemostasis. The vaginal cuff was reperitonealized most way across with the final stitches on each side. The left ureter was seemed to peristalse freely as did the right. Both were normal in caliber and appearance. There was no bleeding. The pelvis was irrigated, examined for hemostasis. That being complete and with the endometriosis essentially all removed with the specimen by resecting as far down on the broad ligaments and out on the round ligaments as was possible and then there was no remaining endometriosis that could be identified. The procedure at this point was terminated. The operative instruments were removed under direct vision. No bleeding was noted. The abdomen was evacuated of insufflating gas in the process of removing the ports. The skin incisions were stapled after closing the fascia at the supraumbilical incision with a [id number] suture of 2-0 Vicryl. Speculum was replaced in the vagina. The vaginal cuff was examined and it was found to be completely hemostatic and completely reapproximated with good support. Sponge and needle counts were correct on completion of procedure. Estimated blood loss was between about 1500 mL. The patient tolerated the procedure well and was uneventfully awakened from general anesthesia and transferred to recovery room in stable condition. Job ID: [id number] DocumentID: [id number] Dictated Date: 09/15/2018 14:00:40 Glass Bender Date: 09/15/2018 22:28:05 Dictated By: GLENROY HARRISON MD
[2018-09-16 00:21] VITALS: BP 88/52
[2018-09-16] MEDS: KETOROLAC 30 MG/ML VIAL IVP SCH (02:37)
--- NOTE | 2018-09-16 07:30 | NUR ---
DR. HARRISON HERE TO SEE PT. PLAN FOR DISCHARGE TODAY.
--- NOTE | 2018-09-16 07:43 | Progress Note-Standard ---
Standard Progress Note Progress Notes/Assess & Plan Date Seen by a Provider: Sep 16, 2018 Time Seen by a Provider: 07:42 Progress/Assessment & Plan This patient is without complaint. She is ambulating, voiding, tolerating oral intake well and has good pain control. Patient has not voided yet. She denies chest pain, denies shortness of breath, denies nausea vomiting, and denies headache. Vital Signs Date Time Temp Pulse Resp B/P (MAP) Pulse Ox O2 Delivery O2 Flow Rate FiO2 09/16/18 00:21 100.3 67 16 88/52 (64) 97 Room Air 09/15/18 20:51 Room Air 09/15/18 20:48 100.6 80 16 93/54 (67) 97 Room Air 09/15/18 20:48 Room Air 09/15/18 15:29 96 Room Air 09/15/18 15:29 98.5 69 16 97/50 (66) 96 Room Air 09/15/18 15:15 98.6 20 99 Room Air 09/15/18 15:10 20 99 Room Air 09/15/18 15:00 18 100 Room Air 09/15/18 14:50 17 100 Room Air 09/15/18 14:40 18 100 OxyMask 4 09/15/18 14:30 16 100 OxyMask 4 09/15/18 14:20 18 100 OxyMask 10 09/15/18 14:10 98.5 16 100 OxyMask 10 09/15/18 11:47 97.5 86 18 125/75 (92) 100 Room Air I & O 09/16/18 07:00 Intake Total 3800 ml Output Total 2800 ml Balance 1000 ml Vital signs are stable. Patient is afebrile. The abdomen is benign. There are bowel sounds present. The surgical incision dressings are clean dry and intact. Extremities show no clubbing cyanosis. There is no Homans sign. Assessment and plan postoperative day number 1 doing well. Plan is for routine convalescence care with discharge home once patient has demonstrated adequate bladder function Final Diagnosis Chronic pelvic pain/endometriosis/dysfunctional uterine bleeding GLENROY HARRISON MD Sep 16, 2018 07:43
[2018-09-16 08:15] VITALS: BP 104/56
--- NOTE | 2018-09-16 08:15 | NUR ---
ASSESSMENT COMPLETED. VSS. UP TO THE BATHROOM. VOIDED 250 CC CLEAR YELLOW URINE. MULUGETA CARE WITH PAD AND UNDERWEAR APPLIED. GOWN CHANGE. MOVING VERY WELL.
[2018-09-16] MEDS ORDERED: IBUPROFEN 800 MG (MOTRIN) TAB PO ONE (08:26)
--- NOTE | 2018-09-16 08:30 | NUR ---
OUT TO AMBULATE IN THE [facility] WITH STANDBY ASSIST.
--- NOTE | 2018-09-16 08:47 | Anesthesia-General Post-Op ---
General Patient Condition Mental Status/LOC: Same as Preop Cardiovascular: Satisfactory Nausea/Vomiting: Absent Respiratory: Satisfactory Pain: Controlled Complications: Absent Post Op Complications Complications None Follow Up Care/Instructions Patient Instructions None needed. Anesthesia/Patient Condition Patient Condition Patient is doing well, no complaints, stable vital signs, no apparent adverse anesthesia problems. No complications reported per nursing. LUIZ OLVERA CRNA Sep 16, 2018 08:47
[2018-09-16] MEDS ORDERED: DOCUSATE SODIUM 100 MG (COLACE) CAP PO SCH (09:00)
[2018-09-16] MEDS ORDERED: ESTRADIOL 1 MG TAB (ESTRACE) PO SCH (09:00)
--- NOTE | 2018-09-16 10:30 | NUR ---
SLEEPING QUIETLY. NO APPARENT DISTRESS.
[2018-09-16 12:00] VITALS: BP 91/54
[2018-09-16] MEDS ORDERED: IBUPROFEN 800 MG (MOTRIN) TAB PO SCH (12:00)
--- NOTE | 2018-09-16 13:55 | NUR ---
RXS CALLED TO [facility] PER PT REQUEST.
[2018-09-16 14:00] VITALS: BP 91/54
--- NOTE | 2018-09-16 14:00 | NUR ---
DISCHARGE INSTRUCTIONS REVIEWED WITH COPY TO PT. STATES UNDERSTANDING OF ALL INSTRUCTIONS AND NEED TO F/U SCHEDULED AND NEEDED. DISMISSED FROM [facility] VIA W/C TO FAMILY CAR IN STABLE CONDITION ACC BY AND STEPHANIE NARAYAN.
== END 2018-09-16 14:00 | disposition home or self-care (01) ==
LOC: SDC 11:26 → WS 15:15 → SDC 09-16 14:00
PROVIDERS: ATTEND Obstetrics & Gynecology
DX: D25.1 Intramural leiomyoma of uterus (principal); D25.2 Subserosal leiomyoma of uterus; N83.8 Other noninflammatory disorders of ovary, fallopian tube and broad ligament; N80.0 Endometriosis of uterus; N73.6 Female pelvic peritoneal adhesions (postinfective); F32.9 Major depressive disorder, single episode, unspecified; F41.9 Anxiety disorder, unspecified; K21.9 Gastro-esophageal reflux disease without esophagitis; B00.9 Herpesviral infection, unspecified; Z79.899 Other long term (current) drug therapy
CPT/HCPCS: 36415; 84703; 85025; 86850; 86900; 86901; 87081; 88307; 94664

== ENCOUNTER → 2020-07-29 | Outpatient (CLI) | payer BC, OTHER ==
[~2020-07-29] MED LIST changes: -LAMO150T2 PO; +LAMO150T4 PO
--- NOTE | 2020-07-29 12:19 | Diagnostic Imaging Report ---
INDICATION: Routine screening. COMPARISON is made with prior mammogram 07/23/2018 and 07/10/2017. 2-D and 3-D bilateral screening mammography was performed with CAD. Both breasts are heterogeneously dense, limiting the sensitivity of mammography. There are benign calcifications bilaterally. No mass or malignant appearing microcalcifications are seen. Axillae are unremarkable. IMPRESSION: BI-RADS Category 2. No mammographic features suspicious for malignancy are identified. ACR BI-RADS Category 2: Benign findings. Result letter will be mailed to the patient. Note: At least 10% of breast cancer is not imaged by mammography. Dictated by: Dictated on workstation # [id number]
== END ==
LOC: RAD 11:30
PROVIDERS: ATTEND Obstetrics & Gynecology
DX: Z12.31 Encounter for screening mammogram for malignant neoplasm of breast (principal)
CPT/HCPCS: 77063; 77067

== ENCOUNTER → 2022-04-17 | Outpatient (CLI) | payer BC ==
[~2022-04-17] MED LIST changes: -ESTR2TAB PO; +ESTR2TAB3 PO
--- NOTE | 2022-04-17 12:23 | Diagnostic Imaging Report ---
EXAMINATION: Ultrasound of the right breast limited. INDICATION: Right breast pain. FINDINGS: The diagnostic mammogram performed prior to this study failed to show any sign of malignancy or of an acute abnormality. On this study, there is no discrete solid or cystic mass evident in the area of the patient's pain. There is no sign of an abscess either. IMPRESSION: There is no evidence for malignancy or for an acute abnormality. Clinical followup is recommended. ACR BI-RADS Category 1: Negative. Dictated by: Dictated on workstation # [id number]
--- NOTE | 2022-04-18 08:50 | Diagnostic Imaging Report ---
3-D bilateral diagnostic mammogram with CAD. CAD is utilized. The current study was also evaluated with a Computer Aided Detection (CAD) system. INDICATION: Right breast pain This study was compared to the prior exam of 07/29/2020, 07/23/2018 and 07/09/2017. At this time the patient does complain of pain in the right breast. The fibroglandular tissue in both breasts is dense. This does limit the sensitivity of this exam. When compared to the previous studies there does not appear to have been any significant change. There is no primary or secondary sign of malignancy noted. There is no abnormality of the right breast to account for the patient's pain either. IMPRESSION: 1. There is no evidence of malignancy or for an acute abnormality of the right breast to account for the patient's pain. 2. Ultrasound of the right breast is pending for further study. ACR BI-RADS Category 0: Incomplete. (Needs additional imaging evaluation). Result letter will be mailed to the patient. Note: At least 10% of breast cancer is not imaged by mammography. Dictated by: Dictated on workstation # [id number]
== END ==
LOC: RAD 10:56
PROVIDERS: ATTEND Obstetrics & Gynecology
DX: Z12.31 Encounter for screening mammogram for malignant neoplasm of breast (principal); N63.10 Unspecified lump in the right breast, unspecified quadrant
CPT/HCPCS: 76642; 77066; G0279; 77062

== ENCOUNTER → 2023-04-18 | Outpatient (CLI) | payer BC ==
--- NOTE | 2023-04-18 15:51 | Diagnostic Imaging Report ---
INDICATION: Routine screening. COMPARISON: 04/17/2022 and 07/29/2020. TECHNIQUE: 2D and 3D bilateral screening mammography was performed with CAD. FINDINGS: Both breasts are heterogeneously dense, limiting the sensitivity of mammography. The parenchymal pattern is stable. No mass or malignant-appearing microcalcifications are seen. Axillae are unremarkable. IMPRESSION: No mammographic features suspicious for malignancy are identified. ACR BI-RADS Category 1: Negative. Result letter will be mailed to the patient. Note: At least 10% of breast cancer is not imaged by mammography. Dictated by: Dictated on workstation # [id number]
== END ==
LOC: RAD 09:57
PROVIDERS: ATTEND Obstetrics & Gynecology
DX: Z12.31 Encounter for screening mammogram for malignant neoplasm of breast (principal)
CPT/HCPCS: 77063; 77067